=== PATIENT | male | born 1940 | race Caucasian/White ===

== ENCOUNTER 2019-06-21 14:47 | Outpatient (CLI) | payer MEDICARE, SELFPAY ==
--- NOTE | 2019-06-21 14:58 | XR_ITS ---
WS: [id number] PROCEDURE: XR chest 2V* [id number] CLINICAL INFORMATION: Chronic cough COMPARISON: None. FINDINGS: Heart: Cardiomegaly. Lungs: Chronic emphysematous changes. No acute pulmonary infiltrates. Bones: Thoracic curve and kyphosis. Prior vertebroplasty changes in the lower thoracic spine. XR/XR chest 2V* [id number] IMPRESSION: No acute chest findings.
== END 2019-06-21 14:48 | disposition home or self-care (01) ==
LOC: RAD 14:51
PROVIDERS: PCP Nurse Practitioner Family; Visit Provider Internal Medicine Critical Care Medicine
DX: R05 Cough (principal)
CPT/HCPCS: 71046

== ENCOUNTER 2019-07-14 13:19 | Outpatient (CLI) | payer MEDICARE, SELFPAY ==
--- NOTE | 2019-07-14 13:27 | XR_ITS ---
WS: [id number] LEFT HAND: 3 VIEW(S) TECHNIQUE: PA, oblique and lateral. HISTORY: PAIN COMPARISON: None available. No acute fracture or dislocation. Multiple erosions involving the third metacarpal head. Additional moderate interphalangeal joint spac e narrowing with sclerosis and osteophytosis. Mild narrowing of the first carpometacarpal joint with arthritis. Prior avulsion fracture from the ulnar styloid. XR/XR hand LT min 3V* [id number] IMPRESSION: 1. Multiple erosions and partial subluxation at the third metacarpal phalangea l joint. Could be due to inflammatory arthropathy or prior trauma with healing or acute. 2. Additional moderate interphalangeal joint space narrowing from arthritis.
== END 2019-07-14 13:20 | disposition home or self-care (01) ==
LOC: RAD 13:22
PROVIDERS: PCP Nurse Practitioner Family; Visit Provider Nurse Practitioner Family
DX: M79.642 Pain in left hand (principal); M85.842 Other specified disorders of bone density and structure, left hand; M19.042 Primary osteoarthritis, left hand
CPT/HCPCS: 73130

== ENCOUNTER 2019-09-02 09:54 | Outpatient (CLI) | payer MEDICARE, SELFPAY ==
--- NOTE | 2019-09-02 09:43 | PFTS_ITS ---
Date of Study:09/02/19 Date of Dictation: MECHANICS: Forced vital capacity (FVC) is normal. Forced expiratory volume in one second (FEV1) is reduced. FEV1/FVC is reduced. FLOW VOLUME LOOP: Mild scooping. LUNG VOLUMES: Total lung capacity (TLC) is normal. Residual volume (RV) is normal. DIFFUSING CAPACITY FOR CARBON MONOXIDE: Normal. INTERPRETATION: The pulmonary function tests are consistent with moderate obstruction. There is no significant postbronchodilator response. Lung volumes are normal. Gas exchange (DLCO) is normal. MTDD
== END 2019-09-02 09:55 | disposition home or self-care (01) ==
LOC: RT 09:58
PROVIDERS: PCP Nurse Practitioner Family; Visit Provider Internal Medicine Critical Care Medicine
DX: R05 Cough (principal)
CPT/HCPCS: 94060; 94726; 94729; J7611

== ENCOUNTER 2019-09-22 11:25 | Inpatient (IN) | payer MEDICARE, SELFPAY ==
[2019-09-22] VITALS (75 sets, daily range): BP systolic 58–132; BP diastolic 37–81; PULSE 51–109; RESP 12–33; TEMP 36.6–36.7; O2SAT 90–100; BMI 26.3
--- NOTE | 2019-09-22 11:44 | XRR_ITS ---
PROCEDURE INFORMATION: Exam: XR Chest, 1 View Exam date and time: 09/22/2019 12:16 PM Age: 79 years old Clinical indication: Other: Altered mental status; Additional info: AMS TECHNIQUE: Imaging protocol: XR of the chest Views: 1 view. COMPARISON: CR XR chest 2V* [id number] 06/21/2019 3:01 PM FINDINGS: Lungs: Mild interstitial prominence without acute airspace disease. Pleural space: No pleural effusion. Heart/Mediastinum: Cardiac silhouette upper limits of normal in size. Vasculature: Ectasia of the thoracic aorta. Bones/joints: Osteopenia, degenerative change, and vertebral plasty. Other findings: Metallic necklace. XR/XR chest 1V portable [id number] IMPRESSION: No acute airspace or pleural disease.
--- NOTE | 2019-09-22 11:44 | CT_ITS ---
WS: [id number] CT HEAD NONCONTRAST HISTORY: AMS TECHNIQUE: Contiguous axial imaging performed through the brain in 2.5 mm imaging. Bone and soft tiss ue windows. Sagittal and coronal reformats reviewed. All CT scans at [facility] use at ast one of these dose optimization techniques: automated exposure control; mA and/or kV adjustment pe r patient size (includes targeted exams where dose is matched to clinical indication); or iterative r econstruction. DLP: 824.53 mGy.cm COMPARISON: None available. No acute intracranial hemorrhage, midline shift or mass effect. Mild atrophy and mild chronic microvascular ischemic disease. No prior infarcts. Ventricles: Normal size with no hydrocephalus. Moderate atherosclerotic plaque through the cavernous sinuses. Paranasal sinuses: Mild mucoperiosteal thickening in the ethmoid air cells. Mastoid air cells: Well pneumatized. Calvarium and scalp: Skull is intact with no soft tissue edema or swelling. CT/CT head wo con* [id number] IMPRESSION: 1. No acute intracranial hemorrhage or edema. 2. Mild atrophy and mild chronic microvascular ischemic disease.
--- NOTE | 2019-09-22 11:46 | ECG_ITS ---
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 Measurements Intervals [place] Rate: 66 P: 47 UT: 243 QRS: -50 QRSD: 105 T: -42 QT: 413 QTc: 434 Interpretive Statements SINUS RHYTHM WITH FIRST DEGREE AV BLOCK LEFT AXIS DEVIATION [QRS AXIS < -30] PATTERN CONSISTENT WITH PULMONARY DISEASE No previous ECG available for comparison Electronically Signed On 09-22-2019 16:26:30 CDT by Mohan Fields M.D. [email or web address]
[2019-09-22 11:48] LABS: Glucose Point of Care 147 mg/dL (70-110)
[2019-09-22] MEDS: ondansetron 2 mg/ML SDV 2 mL 4 MG IVP (11:54)
[2019-09-22] MEDS: levofloxacin-dextrose 5 % 750 MG/150 ML PREMIX 150 MG IV (11:55)
[2019-09-22] MEDS: sodium chloride 0.9% 1,000 ML 999 ML IV ×2 (11:56→13:04)
[2019-09-22] MEDS: sodium chloride 0.9% 1,000 ML 150 ML IV ×3 (11:57→22:22)
--- NOTE | 2019-09-22 12:00 | PC.NURSE ---
MARI YEBOAH HREAD BACK FROM DR. FABIAN FOR LEVOPHED TO BE ADM NOW AT A RATE OF 10MCG/MIN 37.5ML/HR AND THEN TO TITRAITE ACCORDING TO THE MAP INCREASE BELOW 65 AND DECREASE AND DECREASE FOR A MAP OF ABOVE 65.
[2019-09-22 12:04] LABS: Basophils % 0.4 %; Eosinophils # 0.2 10^3/uL (0.0-0.8); Eosinophils % 3.1 %; Hematocrit 34.9 % (42.0-52.0); Hemoglobin 10.9 g/dL (11.7-16.6); Lymphocytes # 0.9 10^3/uL (0.8-4.8); Lymphocytes % 13.4 %; Mean Corpuscular HGB Conc 31.2 g/dL (30.0-36.0); Mean Corpuscular Hemoglobin 31.7 pg (28.0-34.0); Mean Corpuscular Volume 101.5 fL (80-94); Mean Platelet Volume 10.1 fL (7.4-10.4); Monocytes # 0.5 10^3/uL (0.2-0.9); Monocytes % 7.1 %; Neutrophils # 5.32 10^3/uL (1.8-7.7); Neutrophils % 75.7 %; Nucleated Red Blood Cells % 0 %; Platelet Count 273 10^3/cmm (130-400); Red Blood Count 3.44 10^6/uL (4.1-5.3); Red Cell Distribution Width 14.3 % (12.1-15.1)
[2019-09-22 12:08] LABS: ABG PCO2 37.9 mmHg (35-45); ABG PH Result 7.33 (7.35-7.45); Alveolar-Arterial Oxygen Gradi 37.3 mmHg (5-10); Arterial Blood Gas Hematocrit 33.7 % (42-52); Base Excess ABG -5.4 mmol/L (-2.0-2.0); Blood Gas Allen Test Pos; Blood Gas Operator Identificat glc; Blood Gas Sample Site Radial, right; Blood Gas Sample Type Arterial; Carboxyhemoglobin 0.7 %THgb (0.4-20.1); HGB O2 Sat 96.6 % (95-100); Ionized Calcium Level - ABG 1.2 mmol/L (1.1-1.4); Methemoglobin 1.3 % (0.4-1.5); Oxygen Device NC; Oxygen Saturation ABG 98.5; Potassium Level - ABG 4.8 mmol/L (3.5-5.0)
[2019-09-22 12:10] LABS: INR 0.91 (0.8-1.2)
--- NOTE | 2019-09-22 12:10 | PC.NURSE ---
INFORMED DR. FABIAN OF BP OF 106/54 VO WITH READBACK TO DECREASE LEVOPHED TO 2MCG/MIN. WHILE AT BEDSIDE DECREASED LEVOPHED TO 2MCG/MIN
[2019-09-22 12:11] LABS: Partial Thromboplastin Time 28.7 SECONDS (23.9-36.7)
[2019-09-22 12:18] LABS: Ammonia 40 umol/L (16-60)
--- NOTE | 2019-09-22 12:18 | PC.NURSE ---
INFORMED DR. FABIAN THAT PT WAS ABLE TO URINATE VO WITH READBACK TO HOLD CATHETER
[2019-09-22 12:20] LABS: Lactic Sepsis W/Reflex 2.1 mmol/L (0.5-2.2)
--- NOTE | 2019-09-22 12:24 | W.ED.NEUROSD ---
HPI - Neuro Symptoms/Deficit General: Chief Complaint: Neuro Symptoms/Deficit Stated Complaint: weakness, can't walk today Time Seen by Provider: 09/22/19 11:44 Source: patient and family Mode of arrival: wheelchair Limitations: altered mental status History of Present Illness: HPI Narrative: Michael is a 79-year-old male who comes in with altered mental status and hypotension. All history is taken from his and the patient only answer some yes/no questions. He is very somnolent continues to fall off back to sleep. The patient's states that he was working outside in the sun the past 3 days and then after being stung yesterday he started acting funny later in the day. He does not have a history of anaphylactic reactions. He did not have hives, have any swelling or any difficulty breathing or swallowing. The patient's believes his blood pressure was low last night and then today he has been acting very abnormal along with being confused, weak and apparently almost passing out at times. Today he was trying to drive when she noticed he was very altered and got him to stop the car and then upon getting out he did have a syncopal spell. The patient was seen by a home health screening nurse and when he was found to have a significantly low blood pressure she recommended they come to the ER and his brought him here emergently. Here the patient will answer some yes/no questions but appears confused and he is significantly hypotensive when he arrives with a blood pressure in the 50s systolic. Review of Systems General: Reports: Other (ROS limited other than as noted in HPI secondary to patient's altered mental status.) [facility] ED PFSH: Medical History Arthritis COPD (chronic obstructive pulmonary disease) Depression with anxiety GERD (gastroesophageal reflux disease) Gout HTN (hypertension) Hyperlipidemia Restless leg syndrome Surgical History H/O hand surgery H/O knee surgery H/O shoulder surgery History of back surgery Family History Mother Osteoporosis Other CAD (coronary artery disease) Social History Smoking and tobacco status: former smoker Quit status (tobacco): has quit using tobacco Year quit tobacco: 1983 - 1PPD x 30 Years Alcohol intake: never Lives independently: Yes Household members: spouse Marital status: Current occupational status: employed 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 History of recent travel: No Current gender identity: Male Physical Exam Const: EXAM LIMITATIONS: altered mental status GENERAL APPEARANCE: lethargic ORIENTATION/CONSCIOUSNESS: Yes lethargic HENMT: COMMON NORMALS: normocephalic, atraumatic, external ears normal, EAC's normal and Normal external nose present HEAD & SCALP: normal to inspection, normocephalic and atraumatic FACE & SINUS: normal facial exam and face symmetric NOSE: Normal external nose present and Normal nares present EXTERNAL EAR: Yes external ears normal EXTERNAL AUDITORY CANAL: EAC's normal MOUTH: Normal oral and palatal mucosa present, lip normal and tongue normal Eye: COMMON NORMALS: Equal, round and reactive pupils present and conjunctivae normal GENERAL EYE: appearance normal, both eyes and all related structures ALIGNMENT: Yes alignment normal PERIORBITAL: periorbital findings normal EYELID: eyelids normal CONJUNCTIVA: Yes conjunctivae normal SCLERA: sclerae normal PUPIL: Yes Equal, round and reactive pupils present Neck/C-Spine: COMMON NORMALS: full ROM, no lymphadenopathy, supple, no meningeal signs and no JVD GENERAL: Yes normal visual inspection and Yes trachea midline Chest: COMMONS NORMALS: normal inspection of the chest and normal palpation of entire chest wall Resp: COMMON NORMALS: normal respiratory effort, No retractions and No use of accessory muscles EFFORT & INSPECTION: Yes able to speak in complete sentences and Yes symmetric chest movement AUSCULTATION: no crackles, no rales, no rhonchi and no wheezes Cardio: COMMON NORMALS: no JVD, regular rate, regular rhythm, S1 normal heart sound present and S2 normal heart sound present RATE: regular rate RHYTHM: regular rhythm HEART SOUNDS: S1 normal heart sound present, S2 normal heart sound present, no click, no gallops, no murmurs, no rubs and abnormal split S2 GI: COMMON NORMALS: Soft to palpation and No hepatosplenomegaly present PALPATION: Yes Soft to palpation, No Tenderness to palpation present (GI), No Guarding due to palpation present (GI), No Rigid due to palpation, Yes No hepatosplenomegaly present, No Hernia present, No Palpable mass present and No Pulsatile mass present : COMMON NORMALS: Yes no CVA tenderness BLADDER/KIDNEY EXAM: Yes no CVA tenderness Back/Pelvis: COMMON NORMALS: no CVA tenderness, thoracic and lumbar spine normal to inspection, no thoracic nor lumbar tenderness and thoraco-lumbar ROM normal Extremity: COMMON NORMALS: normal to inspection, full ROM, capillary refill normal, no joint enlargement, no clubbing, cyanosis or edema and no calf tenderness Neuro: HAIM COMA SCALE: document GCS findings [place] coma scale eye opening: None Haim coma scale verbal response: Confused Haim coma scale motor response: Obey commands Haim coma scale total score: 11 COMMON NORMALS: moves all extremities, no focal motor deficits and no sensory deficits noted SENSORIUM/ORIENTATION: Yes lethargic MENINGEAL SIGNS: Yes no meningeal signs SPEECH: speech normal Skin: COMMON NORMALS: no rashes or lesions noted, turgor normal, no jaundice, no petechiae and no mottling GENERAL SKIN EXAM: no rashes or lesions noted and turgor normal Course Vital Signs: Vital signs: Vital Signs Temperature 98.1 F 09/22/19 11:34 Pulse Rate 51 L 09/22/19 16:30 Respiratory Rate 24 H 09/22/19 16:30 Blood Pressure 119/60 09/22/19 16:45 Pulse Oximetry 95 09/22/19 16:30 MDM - Neuro Symptoms/Deficit MDM Narrative: Medical decision making narrative: It is not clear at this time whether this is an anaphylactic reaction or heatstroke or heat exhaustion. The patient has a significantly elevated creatinine but is stable on levo fed and IV fluids. He is producing some urine. His potassium is not critical. I reviewed the case in full with Dr. Henderson and he is agreeable to admission. The patient has been empirically covered for sepsis but I think this is more likely heatstroke or a combination of heat exhaustion with a allergic reaction. The patient is much more clear at this time and is mentating and talking. He has no complaints at this time. Lab Data: Attestation: I reviewed the patient's lab results. Labs: Lab Results 09/22/19 09/22/19 09/22/19 Range/Units 11:40 11:40 11:40 WBC 7.0 (4.0-10.0) 10^3/ uL RBC 3.44 L (4.1-5.3) 10^6/u L Hgb 10.9 L (11.7-16.6) g/dL Hct 34.9 L (42.0-52.0) % MCV 101.5 H (80-94) fL MCH 31.7 (28.0-34.0) pg MCHC 31.2 (30.0-36.0) g/dL RDW 14.3 (12.1-15.1) % Plt Count 273 (130-400) 10^3/c mm MPV 10.1 (7.4-10.4) fL Neut % (Auto) 75.7 % Lymph % (Auto) 13.4 % [place] % (Auto) 7.1 % Eos % (Auto) 3.1 % Baso % (Auto) 0.4 % Neut # (Auto) 5.32 (1.8-7.7) 10^3/u L Lymph # (Auto) 0.9 (0.8-4.8) 10^3/u L [place] # (Auto) 0.5 (0.2-0.9) 10^3/u L Eos # (Auto) 0.2 (0.0-0.8) 10^3/u L Baso # (Auto) 0.0 (0.0-0.1) 10^3/u L Nucleated RBC % (a uto) 0 % Nucleated RBCs # 0.0 /100WBC PT 12.60 (10.5-13.3) SECO NDS INR 0.91 (0.8-1.2) APTT 28.7 (23.9-36.7) SECO NDS Specimen Type Sample Site ABG pH (7.35-7.45) ABG pCO2 (35-45) mmHg ABG pO2 (80.0-100.0) mmH g ABG HCO3 (22-26) mmol/L ABG O2 Saturation ABG Base Excess (-2.0-2.0) mmol/ L Ilir Test A-a O2 Gradient (5-10) mmHg Hematocrit (42-52) % Hgb O2 Saturation (95-100) % Carboxyhemoglobin (0.4-20.1) %THgb Methemoglobin (0.4-1.5) % Total Hemoglobin (14-18) g/dL Ionized Calcium (1.1-1.4) mmol/L O2 Delivery Device FiO2 % Medical Sales Representative ID Sodium 137 (136-145) mmol/L Potassium 5.0 (3.5-5.1) mmol/L Chloride 102 (98-107) mmol/L Carbon Dioxide 20 L (22-29) mmol/L Anion Gap 20.0 H (5-19) BUN 51 H (8-23) mg/dL Creatinine 3.9 H (0.7-1.2) mg/dL Glucose 122 H (65-115) mg/dL POC Glucose (70-110) mg/dL Calculated Osmolal ity 284 L (285-295) mOsm/k g Lactic Acid (0.5-2.2) mmol/L Calcium 9.7 (8.5-10.5) mg/dL Magnesium 2.4 H (1.7-2.3) mg/dL Total Bilirubin 0.4 (0.15-1.2) mg/dL AST 19 (0-40) U/L ALT 14 (0-41) U/L Alkaline Phosphata se 74 (40-130) IU/L Ammonia (16-60) umol/L Creatine Kinase 139 (39-308) U/L Troponin T Baselin e (0-15) ng/L Total Protein 6.6 (6.6-8.7) g/dL Albumin 4.5 (3.5-5.2) g/dL Globulin 2.1 (1.3-4.6) g/dL Lipase 21 (13-60) U/L TSH 2.36 (0.27-4.20) uIU/ mL Free T4 1.23 (0.82-1.77) ng/d L Urine Color (Yellow) Urine Appearance (CLEAR) Urine pH (5-7) Ur Specific Gravit y (1.005-1.030) Urine Protein (Negative) Urine Glucose (UA) (Normal) Urine Ketones (Negative) Urine Blood (Negative) Urine Nitrate (Negative) Urine Bilirubin (NEGATIVE) Urine Urobilinogen (Negative) mg/dL Ur Leukocyte Tomasa ase (Negative) Urine RBC (0-2) /hpf Urine WBC (0-5) /hpf Ur Squamous Epith Cells (0-5) Urine Bacteria (NONE) Hyaline Casts Urine Mucus Ethyl Alcohol < 10 (0-10) mg/dL Serum Ketones (Negative) 09/22/19 09/22/19 09/22/19 Range/Units 11:40 11:40 11:40 WBC (4.0-10.0) 10^3/ uL RBC (4.1-5.3) 10^6/u L Hgb (11.7-16.6) g/dL Hct (42.0-52.0) % MCV (80-94) fL MCH (28.0-34.0) pg MCHC (30.0-36.0) g/dL RDW (12.1-15.1) % Plt Count (130-400) 10^3/c mm MPV (7.4-10.4) fL Neut % (Auto) % Lymph % (Auto) % [place] % (Auto) % Eos % (Auto) % Baso % (Auto) % Neut # (Auto) (1.8-7.7) 10^3/u L Lymph # (Auto) (0.8-4.8) 10^3/u L [place] # (Auto) (0.2-0.9) 10^3/u L Eos # (Auto) (0.0-0.8) 10^3/u L Baso # (Auto) (0.0-0.1) 10^3/u L Nucleated RBC % (a uto) % Nucleated RBCs # /100WBC PT (10.5-13.3) SECO NDS INR (0.8-1.2) APTT (23.9-36.7) SECO NDS Specimen Type Sample Site ABG pH (7.35-7.45) ABG pCO2 (35-45) mmHg ABG pO2 (80.0-100.0) mmH g ABG HCO3 (22-26) mmol/L ABG O2 Saturation ABG Base Excess (-2.0-2.0) mmol/ L Ilir Test A-a O2 Gradient (5-10) mmHg Hematocrit (42-52) % Hgb O2 Saturation (95-100) % Carboxyhemoglobin (0.4-20.1) %THgb Methemoglobin (0.4-1.5) % Total Hemoglobin (14-18) g/dL Ionized Calcium (1.1-1.4) mmol/L O2 Delivery Device FiO2 % Medical Sales Representative ID Sodium (136-145) mmol/L Potassium (3.5-5.1) mmol/L Chloride (98-107) mmol/L Carbon Dioxide (22-29) mmol/L Anion Gap (5-19) BUN (8-23) mg/dL Creatinine (0.7-1.2) mg/dL Glucose (65-115) mg/dL POC Glucose (70-110) mg/dL Calculated Osmolal ity (285-295) mOsm/k g Lactic Acid 2.1 (0.5-2.2) mmol/L Calcium (8.5-10.5) mg/dL Magnesium (1.7-2.3) mg/dL Total Bilirubin (0.15-1.2) mg/dL AST (0-40) U/L ALT (0-41) U/L Alkaline Phosphata se (40-130) IU/L Ammonia (16-60) umol/L Creatine Kinase (39-308) U/L Troponin T Baselin e 52 H (0-15) ng/L Total Protein (6.6-8.7) g/dL Albumin (3.5-5.2) g/dL Globulin (1.3-4.6) g/dL Lipase (13-60) U/L TSH (0.27-4.20) uIU/ mL Free T4 (0.82-1.77) ng/d L Urine Color (Yellow) Urine Appearance (CLEAR) Urine pH (5-7) Ur Specific Gravit y (1.005-1.030) Urine Protein (Negative) Urine Glucose (UA) (Normal) Urine Ketones (Negative) Urine Blood (Negative) Urine Nitrate (Negative) Urine Bilirubin (NEGATIVE) Urine Urobilinogen (Negative) mg/dL Ur Leukocyte Tomasa ase (Negative) Urine RBC (0-2) /hpf Urine WBC (0-5) /hpf Ur Squamous Epith Cells (0-5) Urine Bacteria (NONE) Hyaline Casts Urine Mucus Ethyl Alcohol (0-10) mg/dL Serum Ketones Negative (Negative) 09/22/19 09/22/19 09/22/19 Range/Units 11:44 11:45 11:53 WBC (4.0-10.0) 10^3/ uL RBC (4.1-5.3) 10^6/u L Hgb (11.7-16.6) g/dL Hct (42.0-52.0) % MCV (80-94) fL MCH (28.0-34.0) pg MCHC (30.0-36.0) g/dL RDW (12.1-15.1) % Plt Count (130-400) 10^3/c mm MPV (7.4-10.4) fL Neut % (Auto) % Lymph % (Auto) % [place] % (Auto) % Eos % (Auto) % Baso % (Auto) % Neut # (Auto) (1.8-7.7) 10^3/u L Lymph # (Auto) (0.8-4.8) 10^3/u L [place] # (Auto) (0.2-0.9) 10^3/u L Eos # (Auto) (0.0-0.8) 10^3/u L Baso # (Auto) (0.0-0.1) 10^3/u L Nucleated RBC % (a uto) % Nucleated RBCs # /100WBC PT (10.5-13.3) SECO NDS INR (0.8-1.2) APTT (23.9-36.7) SECO NDS Specimen Type Arterial Sample Site Radial, right ABG pH 7.33 L (7.35-7.45) ABG pCO2 37.9 (35-45) mmHg ABG pO2 113.0 H (80.0-100.0) mmH g ABG HCO3 20.0 L (22-26) mmol/L ABG O2 Saturation 98.5 ABG Base Excess -5.4 L (-2.0-2.0) mmol/ L Ilir Test Pos A-a O2 Gradient 37.3 H (5-10) mmHg Hematocrit 33.7 L (42-52) % Hgb O2 Saturation 96.6 (95-100) % Carboxyhemoglobin 0.7 (0.4-20.1) %THgb Methemoglobin 1.3 (0.4-1.5) % Total Hemoglobin 11.0 L (14-18) g/dL Ionized Calcium 1.2 (1.1-1.4) mmol/L O2 Delivery Device Nc FiO2 28.0 % Medical Sales Representative ID glc Sodium 139.0 (136-145) mmol/L Potassium 4.8 (3.5-5.1) mmol/L Chloride (98-107) mmol/L Carbon Dioxide (22-29) mmol/L Anion Gap (5-19) BUN (8-23) mg/dL Creatinine (0.7-1.2) mg/dL Glucose 126.0 H (65-115) mg/dL POC Glucose 147 (70-110) mg/dL Calculated Osmolal ity (285-295) mOsm/k g Lactic Acid (0.5-2.2) mmol/L Calcium (8.5-10.5) mg/dL Magnesium (1.7-2.3) mg/dL Total Bilirubin (0.15-1.2) mg/dL AST (0-40) U/L ALT (0-41) U/L Alkaline Phosphata se (40-130) IU/L Ammonia 40 (16-60) umol/L Creatine Kinase (39-308) U/L Troponin T Baselin e (0-15) ng/L Total Protein (6.6-8.7) g/dL Albumin (3.5-5.2) g/dL Globulin (1.3-4.6) g/dL Lipase (13-60) U/L TSH (0.27-4.20) uIU/ mL Free T4 (0.82-1.77) ng/d L Urine Color (Yellow) Urine Appearance (CLEAR) Urine pH (5-7) Ur Specific Gravit y (1.005-1.030) Urine Protein (Negative) Urine Glucose (UA) (Normal) Urine Ketones (Negative) Urine Blood (Negative) Urine Nitrate (Negative) Urine Bilirubin (NEGATIVE) Urine Urobilinogen (Negative) mg/dL Ur Leukocyte Tomasa ase (Negative) Urine RBC (0-2) /hpf Urine WBC (0-5) /hpf Ur Squamous Epith Cells (0-5) Urine Bacteria (NONE) Hyaline Casts Urine Mucus Ethyl Alcohol (0-10) mg/dL Serum Ketones (Negative) 09/22/19 Range/Units 12:50 WBC (4.0-10.0) 10^3/ uL RBC (4.1-5.3) 10^6/u L Hgb (11.7-16.6) g/dL Hct (42.0-52.0) % MCV (80-94) fL MCH (28.0-34.0) pg MCHC (30.0-36.0) g/dL RDW (12.1-15.1) % Plt Count (130-400) 10^3/c mm MPV (7.4-10.4) fL Neut % (Auto) % Lymph % (Auto) % [place] % (Auto) % Eos % (Auto) % Baso % (Auto) % Neut # (Auto) (1.8-7.7) 10^3/u L Lymph # (Auto) (0.8-4.8) 10^3/u L [place] # (Auto) (0.2-0.9) 10^3/u L Eos # (Auto) (0.0-0.8) 10^3/u L Baso # (Auto) (0.0-0.1) 10^3/u L Nucleated RBC % (a uto) % Nucleated RBCs # /100WBC PT (10.5-13.3) SECO NDS INR (0.8-1.2) APTT (23.9-36.7) SECO NDS Specimen Type Sample Site ABG pH (7.35-7.45) ABG pCO2 (35-45) mmHg ABG pO2 (80.0-100.0) mmH g ABG HCO3 (22-26) mmol/L ABG O2 Saturation ABG Base Excess (-2.0-2.0) mmol/ L Ilir Test A-a O2 Gradient (5-10) mmHg Hematocrit (42-52) % Hgb O2 Saturation (95-100) % Carboxyhemoglobin (0.4-20.1) %THgb Methemoglobin (0.4-1.5) % Total Hemoglobin (14-18) g/dL Ionized Calcium (1.1-1.4) mmol/L O2 Delivery Device FiO2 % Medical Sales Representative ID Sodium (136-145) mmol/L Potassium (3.5-5.1) mmol/L Chloride (98-107) mmol/L Carbon Dioxide (22-29) mmol/L Anion Gap (5-19) BUN (8-23) mg/dL Creatinine (0.7-1.2) mg/dL Glucose (65-115) mg/dL POC Glucose (70-110) mg/dL Calculated Osmolal ity (285-295) mOsm/k g Lactic Acid (0.5-2.2) mmol/L Calcium (8.5-10.5) mg/dL Magnesium (1.7-2.3) mg/dL Total Bilirubin (0.15-1.2) mg/dL AST (0-40) U/L ALT (0-41) U/L Alkaline Phosphata se (40-130) IU/L Ammonia (16-60) umol/L Creatine Kinase (39-308) U/L Troponin T Baselin e (0-15) ng/L Total Protein (6.6-8.7) g/dL Albumin (3.5-5.2) g/dL Globulin (1.3-4.6) g/dL Lipase (13-60) U/L TSH (0.27-4.20) uIU/ mL Free T4 (0.82-1.77) ng/d L Urine Color Yellow (Yellow) Urine Appearance Clear (CLEAR) Urine pH 5 (5-7) Ur Specific Gravit y 1.025 (1.005-1.030) Urine Protein Neg (Negative) Urine Glucose (UA) Norm (Normal) Urine Ketones Negative (Negative) Urine Blood Neg (Negative) Urine Nitrate Negative (Negative) Urine Bilirubin 1+ H (NEGATIVE) Urine Urobilinogen Neg (Negative) mg/dL Ur Leukocyte Tomasa ase Negative (Negative) Urine RBC None (0-2) /hpf Urine WBC 0-4 H (0-5) /hpf Ur Squamous Epith Cells 0-4 H (0-5) Urine Bacteria 2+ H (NONE) Hyaline Casts 5-10 H Urine Mucus 3+ Ethyl Alcohol (0-10) mg/dL Serum Ketones (Negative) Imaging Data^: CXR: My impression: No acute cardiopulmonary findings. CT Head: Radiologist's impression: [address] [address] [address] Scan Report Signed Patient: Jim Trejo Unit #: [id number] : 1940 Age/Sex: 79 / M ADM Date: 09/22/19 Loc: ER Room/Bed: Attending Dr: Ordering Provider/Ordering MD: Gwendolyn Fisher DO Date of Service: 09/22/19 Procedure(s): CT head wo con* [id number] Accession Number(s): [id number] Report Number: [id number] WS: [id number] CT HEAD NONCONTRAST HISTORY: AMS TECHNIQUE: Contiguous axial imaging performed through the brain in 2.5 mm imaging. Bone and soft tissue windows. Sagittal and coronal reformats reviewed. All CT scans at [facility] use at least one of these dose optimization techniques: automated exposure control; mA and/or kV adjustment per patient size (includes targeted exams where dose is matched to clinical indication); or iterative reconstruction. DLP: 824.53 mGy.cm COMPARISON: None available. No acute intracranial hemorrhage, midline shift or mass effect. Mild atrophy and mild chronic microvascular ischemic disease. No prior infarcts. Ventricles: Normal size with no hydrocephalus. Moderate atherosclerotic plaque through the cavernous sinuses. Paranasal sinuses: Mild mucoperiosteal thickening in the ethmoid air cells. Mastoid air cells: Well pneumatized. Calvarium and scalp: Skull is intact with no soft tissue edema or swelling. CT/CT head wo con* [id number] IMPRESSION: 1. No acute intracranial hemorrhage or edema. 2. Mild atrophy and mild chronic microvascular ischemic disease. Dictated By: Emilee Monson DO Signed By: Emilee Monson DO Signed Date/Time: 09/22/19 1304 DD/ 1302 EKG Data^: EKG 1: Attestation: I personally reviewed and interpreted this EKG as follows: EKG interpretation date: 09/22/19 EKG interpretation time: 11:30 Interpretation: Normal sinus rhythm at 66 beats a minute, first-degree AV block, T waves inverted in 2, 3 and aVF as well as V5 and V6. No old for comparison. EKG 2: Attestation: I personally reviewed and interpreted this EKG as follows: EKG interpretation date: 09/22/19 EKG interpretation time: 13:54 Interpretation: Normal sinus rhythm at 62 beats a minute, first-degree AV block, T waves inverted 2, 3, aVF V5 and V6. Unchanged from previous. Discharge Plan Discharge Patient Disposition: Admitted As Inpatient Admit Provider: Stewart Henderson Clinical Impression: Acute hypotension Altered mental status Qualifiers: Altered mental status type: unspecified Qualified Code(s): R41.82 - Altered mental status, unspecified Acute renal failure Qualifiers: Acute renal failure type: unspecified Qualified Code(s): N17.9 - Acute kidney failure, unspecified Condition: Stable Referrals: Valenzuela,FLAVIO Babin [Primary Care Provider] - Discharge Date/Time: 09/22/19 15:41 Coding Level of Care Code ED [employer] for Chg Fwd Exam Comprehensive
[2019-09-22 12:25] LABS: Ketone (Acetest) Serum Negative (Negative); Troponin(5th) Baseline 52 ng/L (0-15)
[2019-09-22 12:33] LABS: Alanine Aminotransferase 14 U/L (0-41); Albumin Level 4.5 g/dL (3.5-5.2); Alkaline Phosphatase 74 IU/L (40-130); Aspartate Amino Transferase 19 U/L (0-40); Blood Urea Nitrogen 51 mg/dL (8-23); Calcium 9.7 mg/dL (8.5-10.5); Carbon Dioxide 20 mmol/L (22-29); Chloride 102 mmol/L (98-107); Creatine Phosphokinase 139 U/L (39-308); Free T4 Free Thyroxine 1.23 ng/dL (0.82-1.77); Globulin 2.1 g/dL (1.3-4.6); Glucose 122 mg/dL (65-115); Lipase 21 U/L (13-60); Magnesium 2.4 mg/dL (1.7-2.3); Osmolality Calculated 284 mOsm/kg (285-295); Sodium 137 mmol/L (136-145); Thyroid Stimulating Hormone 2.36 uIU/mL (0.27-4.20); Total Bilirubin 0.4 mg/dL (0.15-1.2); Total Protein 6.6 g/dL (6.6-8.7)
--- NOTE | 2019-09-22 12:33 | PC.NURSE ---
PT TO CT VIA NURSE AND PRESSER ALL AROUND IN STRETCHER PT IS IN NAD.
[2019-09-22 12:37] LABS: Alcohol Level < 10 mg/dL (0-10)
[2019-09-22] MEDS: sodium chloride 0.9% 1,000 ML 250 ML IV ×2 (13:05→17:13)
--- NOTE | 2019-09-22 13:18 | PC.NURSE ---
INCREASED NS AT 250ML/HR TO 999 ML/HR UNTIL COMPLETE INFUSION OF 1000ML OF NS BAG. PER DR. CAREN GUERRA WITH READBACK.
[2019-09-22 13:19] LABS: Bilirubin Urine 1+ (NEGATIVE); Blood Urine Neg (Negative); Glucose Urine UA Norm (Normal); Ketones Urine Negative (Negative); Leukocyte Esterase Urine Negative (Negative); Nitrate Urine Negative (Negative); Protein Urine Neg (Negative); Specific Gravity, Urine 1.025 (1.005-1.030); Urine Appearance Clear (CLEAR); Urine Color Yellow (Yellow); Urobilinogen Urine Neg (Negative); pH Urine 5 (5-7)
[2019-09-22 13:22] LABS: Bacteria Urine 2+; Mucus Urine 3+; Squamous Epithelial Cell Urine 0-4 (0-5); WBC Urine 0-4 /hpf (0-5)
[2019-09-22 13:23] LABS: Add Urine Culture? No
--- NOTE | 2019-09-22 13:46 | ECG_ITS ---
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 Measurements Intervals [place] Rate: 62 P: 63 [place]: 309 QRS: -46 QRSD: 104 T: -59 QT: 482 QTc: 491 Interpretive Statements SINUS RHYTHM WITH FIRST DEGREE AV BLOCK LEFT AXIS DEVIATION [QRS AXIS < -30] MODERATE T-WAVE ABNORMALITY, CONSIDER INFERIOR ISCHEMIA [-0.1+ mV T WAVE IN II/aVF] Compared to ECG 09/22/2019 11:50:35 T-wave abnormality now present Possible ischemia now present Electronically Signed On 09-22-2019 16:32:19 CDT by Mohan Fields M.D. [id number]
[2019-09-22] MEDS: acetaminophen 500 mg Tablet 1000 MG PO (14:29)
--- NOTE | 2019-09-22 17:46 | ECG_ITS ---
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 Measurements Intervals [place] Rate: 63 P: 24 [place]: 292 QRS: -46 QRSD: 108 T: -46 QT: 451 QTc: 462 Interpretive Statements SINUS RHYTHM WITH FIRST DEGREE AV BLOCK MARKED LEFT AXIS DEVIATION [QRS AXIS < -30] Compared to ECG 09/22/2019 13:54:34 T-wave abnormality no longer present Possible ischemia no longer present Electronically Signed On 09-23-2019 20:35:41 CDT by Toby Frost M.D. [id number]
[2019-09-22 18:18] LABS: Troponin 5 6HR 29.15 ng/L (0-15)
--- NOTE | 2019-09-22 19:11 | PM.HP ---
Providers/Chief Complaint Admitting Physician: Stewart eHnderson MD Primary Care Provider: Talya Valenzuela APN Chief Complaint: poss heat stroke History of Present Illness Jim Trejo is a 79 year old male with history of hypertension, non-oxygen dependent COPD, osteoarthritis came in today for chief complaint of altered mental status/confusion and dehydration. 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 Patient is stating that he has been dehydrated and exhausted. While he was working he was stung by hornets. He did not experience any anaphylactic reaction in the past to bee stings. His noticed that he was getting lethargic and confused hence decision was made to send him to the ED. patient denied chest pain, shortness of breath, myalgias, motor deficit, nausea, vomiting, stridor, choking sensation, lip swelling. Patient is endorsing syncopal event as well today. On arrival to the ED he was hypotensive his systolic blood pressure was in 60s reportedly, he was confused, he was given normal saline bolus, along with Levaquin, started on vasopressors and transferred to the ICU. Diagnostics in the ER revealed anemia hemoglobin 10.9, macrocytosis, JOSE BUN 51, creatinine 3.9, normal TSH, concentrated urine CT head negative At the time of my evaluation in the ICU patient was on levophed, systolic blood pressure ranging between 115-120, heart rate in 60s I reviewed his EKG which is showing T wave inversion in 2 3 aVF and lateral leads, troponin hour negative delta patient not complaining of any chest pain, Review of Systems Const: Reports: chills, fatigue and malaise; Denies: fever(s), body aches or change in appetite Eyes: Denies: change in vision ENMT: Denies: throat pain, odynophagia or swelling of lips/tongue Card: Denies: chest pain, palpitations, swelling of feet/ankles, dyspnea on exertion or orthopnea Resp: Denies: dyspnea GI: Denies: abdominal pain, nausea or vomiting : Denies: flank pain or difficulty urinating Musc: Denies: neck pain Skin/Breast: Denies: rash Neuro: Denies: headache(s) Psych: Denies: anxiety or depression Endo: Denies: polyuria Robert/Lymph: Denies: easy bruising All/Imm: Denies: urticaria Medications/Allergies Home Medications Medication Instructions Recorded Confirmed Last Taken Type albuterol sulfate 2.5 mg INHALATION Q4H PRN 06/18/19 09/22/19 Unknown History albuterol sulfate 90 mcg/actuation 2 puff INHALATION Q6H PRN 06/18/19 09/22/19 Unknown History aerosol inhaler allopurinol 300 mg tablet 300 mg PO DAILY 06/18/19 09/22/19 09/21/19 History atorvastatin 10 mg tablet 10 mg PO DAILY 06/18/19 09/22/19 09/21/19 History bupropion HCl 150 mg 24 hr tablet, 150 mg PO QAM 06/18/19 09/22/19 09/21/19 History extended release diclofenac potassium 50 mg tablet 50 mg PO QID tab 06/18/19 09/22/19 09/21/19 History fluticasone 250 mcg-salmeterol 50 1 inh INHALATION BID 06/18/19 09/22/19 09/21/19 History mcg/dose blistr powdr for inhalation gabapentin 600 mg tablet 600 mg PO BID 06/18/19 09/22/19 09/21/19 History lisinopril 20 mg tablet 20 mg PO DAILY 06/18/19 09/22/19 09/21/19 History pantoprazole 40 mg tablet,delayed 40 mg PO DAILY 06/18/19 09/22/19 09/21/19 History release ropinirole 3 mg tablet 3 mg PO DAILY PRN tab 06/18/19 09/22/19 Unknown History trazodone 100 mg tablet 50 mg PO DAILY tab 06/18/19 09/22/19 09/21/19 History umeclidinium 62.5 mcg-vilanterol 1 inh INHALATION DAILY 90 Days #60 06/18/19 09/22/19 09/21/19 Rx 25 mcg/actuation powdr for each inhalation venlafaxine 150 mg 150 mg PO DAILY 06/18/19 09/22/19 09/21/19 History capsule,extended release 24 hr zolpidem 10 mg tablet 10 mg PO DAILY tab 06/18/19 09/22/19 09/21/19 History naproxen 500 mg PO BID PRN 09/22/19 09/22/19 Unknown History tramadol 50 mg PO Q4H PRN 09/22/19 09/22/19 09/21/19 History Allergies Allergy/AdvReac Type Severity Reaction Status Date / Time Penicillins Allergy Severe ALGY-Rash Verified 06/18/19 09:31 Sulfa (Sulfonamide Allergy Severe ALGY-Rash Verified 06/18/19 09:31 Antibiotics) ivory soap Allergy ALGY-Rash Uncoded 09/22/19 11:48 PFSH Acute PFSH: Medical History Arthritis COPD (chronic obstructive pulmonary disease) Depression with anxiety GERD (gastroesophageal reflux disease) Gout HTN (hypertension) Hyperlipidemia Restless leg syndrome Surgical History H/O hand surgery H/O knee surgery H/O shoulder surgery History of back surgery Family History Mother Osteoporosis Other CAD (coronary artery disease) Social History Smoking and tobacco status: former smoker Quit status (tobacco): has quit using tobacco Year quit tobacco: 1983 - 1PPD x 30 Years Alcohol intake: never Lives independently: Yes Household members: spouse Marital status: Current occupational status: employed 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 History of recent travel: No Current gender identity: Male Vitals/I&O/Wt Last Vital Signs Temp 98.1 F 09/22/19 11:34 Pulse 51 L 09/22/19 16:30 Resp 24 H 09/22/19 16:30 BP 119/60 09/22/19 16:45 Pulse Ox 95 09/22/19 16:30 09/22/19 09/22/19 09/22/19 06:59 14:59 22:59 Intake Total 2010.833 / 2010.833 2470 / 4481.833 Output Total 250 / 250 650 / 900 Balance 1761.833 / 6394.131 5990 / 3581.833 Weight last 48 hrs Weight 73.936 kg Physical Exam Narrative: EXAM NARRATIVE: Head to toe examination Well-built male Does not look severely dehydrated or sunburnt Alert oriented x3 GCS 15 Neurologically nonfocal exam S1, S2 no tachycardia or heart failure EKG shows T wave inversion low to 3 aVF and lateral leads No active chest pain Lungs are clear to auscultation on bilateral auscultation Abdomen soft nontender nondistended No lack of proprioception Lower extremity does not show any ischemia gangrene ulcer Mild swelling around his right orbital bone, and left elbow from hornet sting No active stridor or respiratory stress No signs of anaphylaxis Urinary Catheter Management^: Ying: Cath Placed During This Visit: yes Urinary Catheter Date of Insertion: 09/22/19 Urinary Catheter Time of Insertion: 12:50 Data : 09/22/19 11:40 09/22/19 11:40 Micro: Microbiology 09/22/19 11:40 Blood Culture - Preliminary Blood SPECIMEN COLLECTED 09/22/19 11:53 Blood Culture - Preliminary Blood SPECIMEN COLLECTED A&P Assessment and plan (1) Altered mental status: Status: Acute Qualifiers: Altered mental status type: unspecified Qualified Code(s): R41.82 - Altered mental status, unspecified (2) Acute renal failure: Status: Acute Qualifiers: Acute renal failure type: unspecified Qualified Code(s): N17.9 - Acute kidney failure, unspecified (3) Acute hypotension: Status: Acute (4) Bee sting: Status: Acute (5) Macrocytic anemia: Status: Acute (6) Troponin level elevated: Status: Acute (7) Syncope: Status: Acute (8) Hypovolemic shock: Status: Acute Additional A&P Information Hypovolemic shock secondary to heat exhaustion and dehydration Responded very well to fluid restriction and use of vasopressors Patient is active for age, low risk for PE, no active chest pain, EKG shows T wave inversions with negative delta troponin, no severe electrolyte imbalance noted, Normal TSH No signs of anaphylaxis Titrate off levo, continue fluid Type II OR I believe troponin elevation is secondary to severe JOSE Patient is denying chest pain, however EKG showing T wave inversions in inferior lateral leads currently chest pain-free, I would obtain echo in the morning to rule out wall motion abnormality, I would hold off on adding therapeutic dose of anticoagulant at this point Patient denies previous history of CHF, OR Acute kidney injury secondary to severe dehydration Prerenal etiology Hold lisinopril and naproxen Anticipating improvement with fluid resuscitation Syncope secondary to hypovolemia Currently awake alert oriented x3 Responded well to fluid resuscitation Echo to be followed in the morning TSH is normal Macrocytic anemia: We will check B12 and folate level, patient does not drink alcohol on daily basis, no lack of proprioception Full code dvt Prophylaxis Heparin Cardiac diet Attestations Medical Necessity Statement*: Currently needing ICU for hypovolemic shock, currently on vasopressors I am anticipating his stay to cross more than 2 midnights, clinical stay will be decided on his clinical progress Time Spent in Patient Care: (>than 50% of time spent in counselling and/or direct pt care on unit). 60 minutes Coding Level of Care Code Acute Ed Special Education Teacher for Chg Fwd Diagnoses Altered mental status R41.82 Altered mental status type: unspecified Acute renal failure N17.9 Acute renal failure type: unspecified Acute hypotension I95.9 Bee sting T63.441A Macrocytic anemia D53.9 Troponin level elevated R79.89 Syncope R55 Hypovolemic shock R57.1
[2019-09-22] MEDS: heparin 5,000 unit/mL INJ 1 mL 5000 UNIT SUBCUT (20:21)
[2019-09-23] VITALS (33 sets, daily range): BP systolic 97–162; BP diastolic 50–89; PULSE 55–106; RESP 10–32; TEMP 36.3–37.1; O2SAT 82–99
[2019-09-23 01:00] LABS: Folate Level 9.8 ng/mL (4.5-32.2)
[2019-09-23 01:01] LABS: Vitamin B12 268 pg/mL (232-1245)
[2019-09-23] MEDS: heparin 5,000 unit/mL INJ 1 mL 5000 UNIT SUBCUT ×3 (04:40→20:12)
[2019-09-23] MEDS: sodium chloride 0.9% 1,000 ML 150 ML IV (04:40)
[2019-09-23 05:35] LABS: Basophils % 0.3 %; Eosinophils # 0.3 10^3/uL (0.0-0.8); Eosinophils % 4.6 %; Hematocrit 32.3 % (42.0-52.0); Hemoglobin 9.9 g/dL (11.7-16.6); Lymphocytes # 0.9 10^3/uL (0.8-4.8); Mean Corpuscular HGB Conc 30.7 g/dL (30.0-36.0); Mean Corpuscular Hemoglobin 32.2 pg (28.0-34.0); Mean Corpuscular Volume 105.2 fL (80-94); Mean Platelet Volume 10.3 fL (7.4-10.4); Monocytes # 0.6 10^3/uL (0.2-0.9); Monocytes % 8.9 %; Neutrophils # 5.21 10^3/uL (1.8-7.7); Neutrophils % 72.8 %; Nucleated Red Blood Cells % 0 %; Platelet Count 217 10^3/cmm (130-400); Red Blood Count 3.07 10^6/uL (4.1-5.3); Red Cell Distribution Width 14.3 % (12.1-15.1); White Blood Count 7.2 10^3/uL (4.0-10.0)
[2019-09-23 05:54] LABS: Blood Urea Nitrogen 31 mg/dL (8-23); Carbon Dioxide 20 mmol/L (22-29); Chloride 111 mmol/L (98-107); Glucose 82 mg/dL (65-115); Osmolality Calculated 284 mOsm/kg (285-295); Sodium 139 mmol/L (136-145)
[2019-09-23 05:57] LABS: Anion Gap 13.4 (5-19); Potassium 5.4 mmol/L (3.5-5.1)
--- NOTE | 2019-09-23 06:18 | PC.NURSE ---
SHIFT SUMMARY PT HAS REMAINED ALERT AND ORIENTATED. PT LEVO IS NO OFF, PRESSURES HOLDING. PT HAS NO COMPLAINTS. PT RIGHT IV REMAINS PATENT. PT HAS HAD ADEQUATE URINE OUTPUT AND GOOD PO INTAKE WELL.
--- NOTE | 2019-09-23 09:09 | P.PN_ITS ---
Subjective Subjective: Interval history: Patient reports feeling much better this morning. Denies being diabetic or having previous history of heart disease. Denies shortness of breath or chest pain. Denies abdominal pain or previous history of melena or hematochezia. His Levophed drip was weaned off and blood pressure is adequate this morning. He reports some chronic nonspecific cough. Echocardiogram without acute/significant findings. He does report chronic left shoulder pain for which she takes analgesics. He also reports history of GERD secondary to NSAIDs but currently asymptomatic. Vitals/I&O/Wt Last Vital Signs Temp 98.7 F 09/23/19 03:10 Pulse 62 09/23/19 04:30 Resp 11 L 09/23/19 04:30 BP 122/60 09/23/19 04:30 Pulse Ox 96 09/23/19 04:30 09/22/19 09/23/19 09/23/19 22:59 06:59 14:59 Intake Total 2807.2 / 4819.033 3001.375 / 7820.408 Output Total 650 / 900 2500 / 3400 Balance 2157.2 / 3919.033 501.375 / 4420.408 Weight last 48 hrs Weight 73.936 kg Physical Exam Const: COMMON NORMALS: no acute distress and patient oriented x3 Resp: COMMON NORMALS: normal respiratory effort and clear to auscultation bilaterally AUSCULTATION: clear to auscultation bilaterally Cardio: COMMON NORMALS: regular rate, regular rhythm and S2 normal heart sound present RATE: regular rate RHYTHM: regular rhythm HEART SOUNDS: S2 normal heart sound present OTHER: No lower extremity edema GI: COMMON NORMALS: Normal to inspection, nondistended, normoactive bowel sounds present, Soft to palpation and non-tender PALPATION: Yes Soft to palpation Neuro: COMMON NORMALS: patient oriented x3 and no focal motor deficits Urinary Catheter Management^: Ying: Cath Placed During This Visit: yes Reason for Continuing Indwelling Catheter: Accurate Measurement of Urinary Output in Critically Ill Patients Urinary Catheter Date of Insertion: 09/22/19 Urinary Catheter Time of Insertion: 12:50 Data : 09/23/19 04:52 09/23/19 04:52 Micro: Microbiology 09/22/19 12:50 Urine Culture - Preliminary Urine Catheterized 09/22/19 11:40 Blood Culture - Preliminary Blood SPECIMEN COLLECTED 09/22/19 11:53 Blood Culture - Preliminary Blood SPECIMEN COLLECTED A&P Assessment and plan (1) Altered mental status: Status: Acute Qualifiers: Altered mental status type: unspecified Qualified Code(s): R41.82 - Altered mental status, unspecified (2) Acute renal failure: Status: Acute Qualifiers: Acute renal failure type: unspecified Qualified Code(s): N17.9 - Acute kidney failure, unspecified (3) Acute hypotension: Status: Acute (4) Bee sting: Status: Acute (5) Macrocytic anemia: Status: Acute (6) Troponin level elevated: Status: Acute (7) Syncope: Status: Acute (8) Hypovolemic shock: Status: Acute Additional A&P Information Hypovolemic shock secondary to heat exhaustion and dehydration Responded very well to fluid restriction and use of vasopressors Patient is active for age, low risk for PE, no active chest pain, EKG shows T wave inversions with negative delta troponin, no severe electrolyte imbalance noted, Normal TSH No signs of anaphylaxis Titrate off levo, continue fluid Type II [place] I believe troponin elevation is secondary to severe JOSE and hypotension. Patient is denying chest pain, however EKG showing T wave inversions in inferior lateral leads currently chest pain-free, I would obtain echo in the morning to rule out wall motion abnormality, I would hold off on adding therapeutic dose of anticoagulant at this point Patient denies previous history of CHF, [place] Acute kidney injury secondary to severe dehydration Prerenal etiology Hold lisinopril and naproxen Anticipating improvement with fluid resuscitation Syncope secondary to hypovolemia Currently awake alert oriented x3 Responded well to fluid resuscitation Echo to be followed in the morning TSH is normal Macrocytic anemia: We will check B12 and folate level, patient does not drink alcohol on daily basis, no lack of proprioception COPD, present on admission. Not in exacerbation PLAN: Repeat EKG. Patient is physically very active and denies ever getting any chest pain or shortness of breath even with exertion. Will give patient 1 dose of Kayexalate and continue normal saline but decrease rate to 75 mL/h. Encouraged oral intake. Remove Ying catheter and monitor urinary output. Patient reports need to wake up several times at night to urinate. If kidney function is not improving consider imaging. At this point no antibiotic will be initiated. Restart home medications. Transfer patient to medical you. Full code dvt Prophylaxis Heparin Cardiac diet Attestations Medical Necessity Statement*: Patient with severe hypotension and dehydration as well as acute kidney injury requires close inpatient monitoring and treatment Time Spent in Patient Care: 16 - 35 minutes Coding Level of Care Code Acute Customer Account Specialist for g Fwd Diagnoses Altered mental status R41.82 Altered mental status type: unspecified Acute renal failure N17.9 Acute renal failure type: unspecified Acute hypotension I95.9 Bee sting T63.441A Macrocytic anemia D53.9 Troponin level elevated R79.89 Syncope R55 Hypovolemic shock R57.1
--- NOTE | 2019-09-23 09:13 | ECG_ITS ---
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 Measurements Intervals [place] Rate: 66 P: 70 [place]: 276 QRS: -49 QRSD: 99 T: -34 QT: 375 QTc: 394 Interpretive Statements SINUS RHYTHM WITH FIRST DEGREE AV BLOCK INFERIOR MYOCARDIAL INFARCTION [40+ ms Q WAVE AND/OR ST/T ABNORMALITY IN II/aVF], OF INDETERMINATE AGE Compared to ECG 09/22/2019 17:14:00 Myocardial infarct finding now present Left-axis deviation no longer present Electronically Signed On 09-23-2019 20:37:30 CDT by Toby Frost M.D. [id number]
[2019-09-23] MEDS: atorvastatin 40 mg Tablet 20 MG PO (11:23)
[2019-09-23] MEDS: sodium chloride 0.9% 1,000 ML 75 ML IV (11:23)
[2019-09-23] MEDS: sodium polystyrene sulfonate 15 gm/60 mL Btl PO (12:00)
--- NOTE | 2019-09-23 12:09 | PC.NURSE ---
Med surg called to give report. nurse busy, will call back.
--- NOTE | 2019-09-23 12:35 | PC.NURSE ---
Report called to Kylie DE LA GARZA
[2019-09-23] MEDS: gabapentin 300 mg Capsule PO (17:52)
--- NOTE | 2019-09-23 18:20 | PC.NURSE ---
SHIFT SUMMARY PATIENT HAS DONE WELL SINCE ARRIVING TO UNIT. VITALS STABLE. PATIENT HAS HAD 2 BM'S. GOOD URINE OUTPUT. NO COMPLAINTS AT THIS TIME.
--- NOTE | 2019-09-23 20:09 | USCV_ITS ---
Jim Trejo Age: 79 Gender: M : 1940 Exam Date: 09/23/2019 05:40 Ordering Phys: Akilah Salas MD Technologist: Tia Garza [place] [facility] [place]: Possible [place] stroke BP: 104 / 54 HR: 70 Rhythm: Sinus Technical Quality: Adequate MEASUREMENTS (Male / Female) Normal Values 2D ECHO LV Diastolic Diameter PLAX 3.9 cm 4.2 - 5.9 / 3.9 - 5.3 cm LV Systolic Diameter PLAX 3.6 cm IVS Diastolic Thickness 1.5 cm 0.6 - 1.0 / 0.6 - 0.9 cm IVS Systolic Thickness 1.3 cm LVPW Diastolic Thickness 1.6 cm 0.6 - 1.0 / 0.6 - 0.9 cm LVPW Systolic Thickness 1.5 cm LVOT Diameter 2.0 cm LV Ejection Fraction 2D Teich 18.6 % LV Ejection Fraction MOD 2C 63.1 % LV Ejection Fraction 2C AL 64.9 % LA Diameter 3.4 cm LA Width 0.0 cm LA Height 3.6 cm RA Width 2.4 cm RA Height 3.9 cm Aorta at Sinotubular Diameter 3.0 cm M-MODE LV Diastolic Diameter MM 6.0 cm 4.2 - 5.9 / 3.9 - 5.3 cm LV Systolic Diameter MM 3.8 cm LV Ejection Fraction MM Teich 64.9 % IVS Diastolic Thickness MM 1.3 cm 0.6 - 1.0 / 0.6 - 0.9 cm IVS Systolic Thickness MM 2.1 cm LVPW Diastolic Thickness MM 1.2 cm 0.6 - 1.0 / 0.6 - 0.9 cm LVPW Systolic Thickness MM 2.1 cm RV Diastolic Diameter MM 1.1 cm Aortic Annulus Diameter 3.6 cm LA Ao Ratio MM 0.9 MV E Point Septal Separation 0.6 cm DOPPLER AV Peak Velocity 234.0 cm/s LVOT Peak Velocity 104.0 cm/s AV Area Cont Eq vti 1.5 cm squared AV Area Cont Eq pk 1.4 cm squared MV Area PHT 3.3 cm squared Mitral E to A Ratio 1.1 MV E' Velocity 10.0 cm/s Mitral E to MV E' Ratio 10.4 Mitral E to LV E' Lateral Ratio 11.1 Mitral E to LV E' Septal Ratio 9.9 TR Peak Velocity 243.0 cm/s TR Peak Gradient 23.5 mmHg TR Mean Velocity 228.6 cm/s TR Mean Gradient 21.9 mmHg TR Velocity Time Integral 80.0 cm TV Peak E Velocity 106.0 cm/s Right Atrial Pressure 3.0 mmHg Pulmonary Artery Systolic Pressu 26.6 mmHg PV Peak Velocity 52.0 cm/s RV Acceleration Time 0.2 s RV Ejection Time 0.4 s RV AcT/ET 0.5 FINDINGS Left Ventricle Normal left ventricular size, systolic function and wall thickness, with no regional wall motion abnormalities. Grade I/IV diastolic dysfunction (abnormal relaxation filling pattern), normal to mildly elevated filling pressures. Left ventricular ejection fraction is estimated at 65 %. Right Ventricle Normal right ventricular size and systolic function. Normal right ventricular systolic pressure. Right Atrium The right atrium is normal in size. Left Atrium The left atrium is normal in size. Mitral Valve Structurally normal mitral valve. Mild mitral valve regurgitation. Aortic Valve Structurally normal trileaflet aortic valve. Moderate aortic valve calcification. Mild aortic valve stenosis, mean gradient 10.3 mmHg, STELLA 1.5 cm squared. Mild aortic valve regurgitation. Tricuspid Valve Structurally normal tricuspid valve. Mild tricuspid valve regurgitation. Pulmonic Valve Pulmonic valve not well visualized. Pericardium Normal pericardium without effusion. Aorta Normal ascending aorta dimension. CONCLUSIONS Normal left ventricular size, systolic function and wall thickness, with no regional wall motion abnormalities. Grade I/IV diastolic dysfunction (abnormal relaxation filling pattern), normal to mildly elevated filling pressures. Left ventricular ejection fraction is estimated at 65 %. Structurally normal mitral valve. Mild mitral valve regurgitation. Structurally normal trileaflet aortic valve. Moderate aortic valve calcification. Mild aortic valve stenosis, mean gradient 10.3 mmHg, STELLA 1.5 cm squared. Mild aortic valve regurgitation. There are no prior echocardiogram studies to compare. Dr. Mohan Fields MD (Electronically Signed) Final Date: 23 September 2019 07:35 S
[2019-09-24] VITALS: BP 161/70; PULSE 69; RESP 18; TEMP 36.8; O2SAT 94
[2019-09-24] MEDS: sodium chloride 0.9% 1,000 ML 75 ML IV (02:51)
[2019-09-24 03:57] VITALS: BP 116/68; PULSE 54; RESP 20; TEMP 36.9; O2SAT 94
[2019-09-24] MEDS: heparin 5,000 unit/mL INJ 1 mL 5000 UNIT SUBCUT ×2 (05:30→11:30)
[2019-09-24] MEDS: buPROPion XL (24 HR) 150 mg Tablet PO (05:30)
[2019-09-24 07:22] VITALS: BP 176/79; PULSE 53; RESP 17; TEMP 36.8; O2SAT 94
[2019-09-24 08:15] VITALS: PULSE 58; RESP 16; O2SAT 98
[2019-09-24] MEDS: atorvastatin 40 mg Tablet 20 MG PO (08:16)
[2019-09-24] MEDS: pantoprazole DR 40 mg Tablet PO (08:16)
[2019-09-24] MEDS: gabapentin 300 mg Capsule PO (08:16)
[2019-09-24] MEDS: venlafaxine ER (24HR) 150 mg Capsule PO (08:16)
[2019-09-24] MEDS: trazodone 100 mg Tablet 50 MG PO (08:16)
[2019-09-24 09:58] LABS: Basophils % 0.7 %; Eosinophils # 0.2 10^3/uL (0.0-0.8); Eosinophils % 4.2 %; Hematocrit 33.6 % (42.0-52.0); Hemoglobin 10.7 g/dL (11.7-16.6); Lymphocytes # 1.3 10^3/uL (0.8-4.8); Lymphocytes % 23.8 %; Mean Corpuscular HGB Conc 31.8 g/dL (30.0-36.0); Mean Corpuscular Hemoglobin 32.2 pg (28.0-34.0); Mean Corpuscular Volume 101.2 fL (80-94); Mean Platelet Volume 9.4 fL (7.4-10.4); Monocytes # 0.5 10^3/uL (0.2-0.9); Monocytes % 8.7 %; Neutrophils # 3.38 10^3/uL (1.8-7.7); Neutrophils % 62.2 %; Nucleated Red Blood Cells % 0 %; Platelet Count 224 10^3/cmm (130-400); Red Blood Count 3.32 10^6/uL (4.1-5.3); Red Cell Distribution Width 13.8 % (12.1-15.1); White Blood Count 5.4 10^3/uL (4.0-10.0)
[2019-09-24 10:19] LABS: Alanine Aminotransferase 13 U/L (0-41); Albumin Level 4.3 g/dL (3.5-5.2); Alkaline Phosphatase 77 IU/L (40-130); Anion Gap 11.9 (5-19); Aspartate Amino Transferase 19 U/L (0-40); Blood Urea Nitrogen 19 mg/dL (8-23); Calcium 9.9 mg/dL (8.5-10.5); Carbon Dioxide 24 mmol/L (22-29); Chloride 108 mmol/L (98-107); Globulin 2.1 g/dL (1.3-4.6); Glucose 117 mg/dL (65-115); Magnesium 1.8 mg/dL (1.7-2.3); Osmolality Calculated 286 mOsm/kg (285-295); Potassium 4.9 mmol/L (3.5-5.1); Sodium 139 mmol/L (136-145); Total Bilirubin 0.3 mg/dL (0.15-1.2); Total Protein 6.4 g/dL (6.6-8.7)
--- NOTE | 2019-09-24 10:33 | PC.CHAP ---
Pastoral Care Encounter/Spiritual Assessment Type of Contact [] Declined flask fitter visit [] Patient/Family/Request visit [] Outpatient visit [] Follow-up visit [] Physician referral [] Code/Alert [x] Routine visit [] Staff referral [] Actively dying [] Patient sleeping [] Family support [] [] Out of room [] Palliative care [] [] Receiving care in room [] Pre-surgical visit [] Trauma [] Long length of stay [] ICU visit [] Other: Relational/Emotional Strength [x] Patient feels connected with others/family/visitors/staff [] Distress [] Loneliness/isolation [] Abandonment Spirituality of Patient [x] Person of Katja [x] Attends Nondenominational of their Katja [x] Believes in Prayer [] Reads Bible or Quaker materials [] There are Spiritual issues to be addressed 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 Interventions [x] Prayer [x] Active listening x[] Non-anxious presence [x] Spiritual/emotional support [] Crisis/trauma care [] Spiritual counseling [] Bereavement support [] Provided bereavement packet [] Provided Bible/devotional materials [] Provided toy/stuffed animal, coloring book to patient or family member [] Provided Communion [] Anointing/[place] [] Salvation [x] Completed spiritual assessment [] Other: Impact on Illness or Injury [] Angry [] Fearful [] Anxious [] Often cries [] Exhaustion [] Unable to work [] Unable to attend samaritan [] Unable to walk/stand [] Unable to read [] Unable to drive [] Unable to eat/drink [] Unable to sleep [] Unable to be with family [] Patient intubated [x] Other: Summary Patient professed katja in the person and work of Lord Starr. Time spent with patient 10 minutes
[2019-09-24 11:30] VITALS: BP 164/92; PULSE 60; RESP 17; TEMP 36; O2SAT 98
--- NOTE | 2019-09-24 11:37 | P.DS_ITS ---
Discharge Providers Date of Admission: 09/22/19 13:44 Date of Discharge: September 24, 2019 Attending Provider at Admission: Stewart Henderson MD Attending Provider at Discharge: Stewart Henderson MD Primary Care Provider: Talya Valenzuela APN Diagnoses at Discharge Discharge Diagnosis (1) Altered mental status: Status: Acute Qualifiers: Altered mental status type: unspecified Qualified Code(s): R41.82 - Altered mental status, unspecified (2) Acute renal failure: Status: Acute Qualifiers: Acute renal failure type: unspecified Qualified Code(s): N17.9 - Acute kidney failure, unspecified (3) Acute hypotension: Status: Acute Problem details: Resolved. (4) Bee sting: Status: Acute (5) Macrocytic anemia: Status: Acute (6) Troponin level elevated: Status: Acute Problem details: Secondary to type II RI. (7) Syncope: Status: Acute (8) Hypovolemic shock: Status: Acute Reason for Visit Reason for Visit: [facility] Hospital Course Discharge Summary: Patient presents with syncopal episode after working under direct sun and being stung by bee several times. He was in hypovolemic shock requiring aggressive IV hydration and pressor support. He had evidence of non-ST elevation RI which felt to be of type II secondary to severe hypotension. Patient gradually improved with his treatment and this morning reports feeling much better and wants to go home. He denies shortness of breath or chest pain. He denies any previous history of chest pain even with exertion. He denies abdominal pain or problems with bowel movement. Denies any difficulty with urination. We have discussed his EKG changes and recommendation to see cardiology on outpatient basis and he agreed. He was noted to have inferior lead Q waves which could potentially indicate previous RI although patient is completely asymptomatic and tolerates heavy physical activity well. I will request lab work in several days prior to primary care physician follow-up. Patient was told to make sure he is well hydrating himself when working outside to avoid similar situation. His appetite and oral intake are very good. He ambulates without difficulty. Physical Exam Const: COMMON NORMALS: no acute distress and patient oriented x3 Resp: COMMON NORMALS: normal respiratory effort and clear to auscultation bilaterally AUSCULTATION: clear to auscultation bilaterally Cardio: COMMON NORMALS: regular rate, regular rhythm and S2 normal heart sound present RATE: regular rate RHYTHM: regular rhythm HEART SOUNDS: S2 normal heart sound present OTHER: No lower extremity edema GI: COMMON NORMALS: Normal to inspection, nondistended, normoactive bowel sounds present, Soft to palpation and non-tender PALPATION: Yes Soft to palpation Neuro: COMMON NORMALS: patient oriented x3 and no focal motor deficits Urinary Catheter Management^: Ying: Cath Placed During This Visit: yes, but has since been removed by the nurse Reason for Continuing Indwelling Catheter: Decision to DC Catheter Urinary Catheter Date of Insertion: 09/22/19 Urinary Catheter Time of Insertion: 12:50 Date Urinary Catheter Removed: 09/23/19 Time Urinary Catheter Discontinued: 10:00 Discharge Data Data Completed and Pending: Completed Studies During Hospitalization Category Date Time Status CT head wo con* 7 0450 Stat Cat Scan 09/22/19 11:44 Completed XR chest 1V anusha ble 29569 Stat Exams 09/22/19 11:44 Completed CV echo complete* 10200 Routine Ultrasound 09/23/19 20:09 Completed Pending at discharge Category Date Time Status Blood Culture Sta t Lab 09/22/19 11:40 Results Complete Blood Co unt w/Auto AM LABS Lab 09/25/19 04:00 Ordered Complete Blood Co unt w/Auto AM LABS Lab 09/26/19 04:00 Ordered Complete Blood Co unt w/Auto AM LABS Lab 09/27/19 04:00 Ordered Comprehensive Met abolic Panel AM LA BS Lab 09/25/19 04:00 Ordered Comprehensive Met abolic Panel AM LA BS Lab 09/26/19 04:00 Ordered Comprehensive Met abolic Panel AM LA BS Lab 09/27/19 04:00 Ordered Magnesium AM LABS Lab 09/25/19 04:00 Ordered Magnesium AM LABS Lab 09/26/19 04:00 Ordered Magnesium AM LABS Lab 09/27/19 04:00 Ordered Labs from last 24 hours 09/24/19 09/24/19 09:48 09:48 WBC 5.4 RBC 3.32 L Hgb 10.7 L Hct 33.6 L MCV 101.2 H MCH 32.2 MCHC 31.8 RDW 13.8 Plt Count 224 MPV 9.4 Neut % (Auto) 62.2 Lymph % (Auto) 23.8 [place] % (Auto) 8.7 Eos % (Auto) 4.2 Baso % (Auto) 0.7 Neut # (Auto) 3.38 Lymph # (Auto) 1.3 [place] # (Auto) 0.5 Eos # (Auto) 0.2 Baso # (Auto) 0.0 Nucleated RBC % (a uto) 0 Nucleated RBCs # 0.0 Sodium 139 Potassium 4.9 Chloride 108 H Carbon Dioxide 24 Anion Gap 11.9 BUN 19 Creatinine 1.3 H GFR Calculation Not Reportable Glucose 117 H Calculated Osmolal ity 286 Calcium 9.9 Magnesium 1.8 Total Bilirubin 0.3 AST 19 ALT 13 Alkaline Phosphata se 77 Total Protein 6.4 L Albumin 4.3 Globulin 2.1 Vitals: Last Vital Signs Temp 96.8 F L 09/24/19 11:30 Pulse 60 09/24/19 11:30 Resp 17 09/24/19 11:30 BP 164/92 09/24/19 11:30 Pulse Ox 98 09/24/19 11:30 Discharge Plan Discharge Patient Disposition: Home Condition: Stable Prescriptions: New aspirin [Adult Aspirin Regimen] 81 mg tablet,delayed release (DR/EC) 81 mg PO DAILY Qty: 30 RF: 0 Continued fluticasone propion-salmeterol [Advair Diskus] 250-50 mcg/dose blister with device 1 inh INHALATION BID RF: 0 albuterol sulfate [ProAir HFA] 90 mcg/actuation HFA aerosol inhaler 2 puff INHALATION Q6H PRN (Reason: Shortness Of Breath) RF: 0 zolpidem [Ambien] 10 mg tablet 10 mg PO DAILY RF: 0 trazodone 100 mg tablet 50 mg PO DAILY RF: 0 allopurinol 300 mg tablet 300 mg PO DAILY RF: 0 ropinirole 3 mg tablet 3 mg PO DAILY PRN (Reason: RESTLESS LEGS) RF: 0 gabapentin 600 mg tablet 600 mg PO BID RF: 0 venlafaxine 150 mg capsule,extended release 24hr 150 mg PO DAILY RF: 0 bupropion HCl 150 mg tablet extended release 24 hr 150 mg PO QAM RF: 0 atorvastatin 10 mg tablet 10 mg PO DAILY RF: 0 pantoprazole 40 mg tablet,delayed release (DR/EC) 40 mg PO DAILY RF: 0 lisinopril 20 mg tablet 20 mg PO DAILY RF: 0 albuterol sulfate 2.5 mg /3 mL (0.083 %) solution for nebulization 2.5 mg INHALATION Q4H PRN (Reason: Shortness Of Breath) RF: 0 Anoro Ellipta 62.5-25 mcg/actuation blister with device 1 inh INHALATION DAILY 90 Days Qty: 60 RF: 3 tramadol 50 mg Tablet 50 mg PO Q4H PRN (Reason: Pain) RF: 0 naproxen 500 mg Tablet 500 mg PO BID PRN (Reason: Pain) RF: 0 Discontinued diclofenac potassium 50 mg tablet 50 mg PO QID RF: 0 Discharge Orders: Discharge Order (Routine); Ordered 09/24/19 Ordered By: Stewart Henderson Other Ambulatory Orders: Complete Blood Count w/Auto (Routine) Timeframe: 20190928 Location: Determined by Patient Ordered By: Stewart Henderson Comprehensive Metabolic Panel (Routine) Timeframe: 20190928 Facility: [facility] - Location: Lab - Main Lab Ordered By: Stewart Henderson Referrals: Talya Valenzuela APN [Primary Care Provider] - Discharge Diet: Regular Discharge Activity: Increase activity as tolerated Activity Restrictions/Additional Instructions: Please call your doctor or present to emergency department if your condition worsens or you develop chest pain, shortness of breath, diarrhea, lightheadedness, fatigue or see blood in your stool or black stool. Please note that we have requested lab work next Saturday prior to primary care physician follow-up to make sure your numbers continue to improve. 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
[2019-09-24 15:07] VITALS: BP 164/92; PULSE 60; RESP 17; TEMP 36; O2SAT 98
--- NOTE | 2019-09-25 16:16 | PC.RESP ---
PULMONARY REHAB INFORMATION SENT TO PATIENT.
== END 2019-09-24 15:08 | disposition home or self-care (01) | DRG 922 ==
LOC: ER 14:24 → ICU 14:35 → MEDSURG 09-23 12:58
PROVIDERS: Emergency Medicine; Internal Medicine; Admitting Provider Internal Medicine; PCP Nurse Practitioner Family; Visit Provider Internal Medicine
DX: T67.5XXA Heat exhaustion, unspecified, initial encounter (principal); I21.A1 Myocardial infarction type 2; R57.1 Hypovolemic shock; N17.9 Acute kidney failure, unspecified; Y93.89 Activity, other specified; Y92.89 Other specified places as the place of occurrence of the external cause; D53.9 Nutritional anemia, unspecified; I95.9 Hypotension, unspecified; W57.XXXA Bitten or stung by nonvenomous insect and other nonvenomous arthropods, initial encounter; I10 Essential (primary) hypertension; J44.9 Chronic obstructive pulmonary disease, unspecified; M19.90 Unspecified osteoarthritis, unspecified site; E86.0 Dehydration; K21.9 Gastro-esophageal reflux disease without esophagitis; E78.5 Hyperlipidemia, unspecified; G25.81 Restless legs syndrome; F41.8 Other specified anxiety disorders; Z87.891 Personal history of nicotine dependence
CPT/HCPCS: 12345; 36415; 36416; 51702; 70450; 71045; 80048; 80051; 80053; 80307; 81001; 82009; 82140; 82550; 82607; 82746; 82810; 82962; 83605; 83690; 83735; 83986; 84439; 84443; 84484; 85025; 85610; 85730; 87040; 87086; 93005; 93306; 94640; 96372; 96375; 99284; J1644; J1956; J2405; J7030

== ENCOUNTER 2019-09-28 12:30 | Outpatient (CLI) | payer MEDICARE, SELFPAY ==
[2019-09-28 13:08] LABS: Basophils % 0.5 %; Eosinophils # 0.4 10^3/uL (0.0-0.8); Eosinophils % 6.5 %; Hematocrit 36.3 % (42.0-52.0); Hemoglobin 11.4 g/dL (11.7-16.6); Lymphocytes # 1.7 10^3/uL (0.8-4.8); Lymphocytes % 29.7 %; Mean Corpuscular HGB Conc 31.4 g/dL (30.0-36.0); Mean Corpuscular Hemoglobin 31.7 pg (28.0-34.0); Mean Corpuscular Volume 100.8 fL (80-94); Mean Platelet Volume 9.7 fL (7.4-10.4); Monocytes # 0.7 10^3/uL (0.2-0.9); Monocytes % 11.5 %; Neutrophils # 2.99 10^3/uL (1.8-7.7); Neutrophils % 51.1 %; Nucleated Red Blood Cells % 0 %; Platelet Count 279 10^3/cmm (130-400); Red Cell Distribution Width 13.9 % (12.1-15.1); White Blood Count 5.9 10^3/uL (4.0-10.0)
[2019-09-28 13:25] LABS: Alanine Aminotransferase 40 U/L (0-41); Albumin Level 4.3 g/dL (3.5-5.2); Alkaline Phosphatase 80 IU/L (40-130); Anion Gap 14.8 (5-19); Aspartate Amino Transferase 37 U/L (0-40); Blood Urea Nitrogen 30 mg/dL (8-23); Calcium 8.8 mg/dL (8.5-10.5); Carbon Dioxide 26 mmol/L (22-29); Chloride 104 mmol/L (98-107); Globulin 2.7 g/dL (1.3-4.6); Glucose 109 mg/dL (65-115); Osmolality Calculated 288 mOsm/kg (285-295); Potassium 4.8 mmol/L (3.5-5.1); Sodium 140 mmol/L (136-145); Total Bilirubin 0.2 mg/dL (0.15-1.2)
== END 2019-09-28 12:31 | disposition home or self-care (01) ==
LOC: LAB 12:34
PROVIDERS: PCP Nurse Practitioner Family; Visit Provider Internal Medicine
DX: R41.82 Altered mental status, unspecified (principal); N17.9 Acute kidney failure, unspecified; D53.9 Nutritional anemia, unspecified; W57.XXXA Bitten or stung by nonvenomous insect and other nonvenomous arthropods, initial encounter; I21.A1 Myocardial infarction type 2; R55 Syncope and collapse; R57.1 Hypovolemic shock
CPT/HCPCS: 36415; 80053; 85025

== ENCOUNTER 2019-11-04 08:19 | Outpatient (CLI) | payer MEDICARE, SELFPAY ==
[2019-11-04 09:05] VITALS: BMI 28.7
--- NOTE | 2019-11-04 09:06 | ECG_ITS ---
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 Interpretive Statements NAME OF STUDY: EXERCISE SESTAMIBI STRESS TEST INDICATION: Abnormal EKG, dyspnea Baseline blood pressure of 143/74 mm Hg, heart rate 80 beats per minute and oxygen saturation of 92%. EKG showed sinus rhythm with first-degree AV block. Left axis deviation. Possible old inferior infarct. The patient exercised for 7 minutes 28 seconds on a standard Florencio protocol. Patient attained a maximum heart rate of 122 beats per minute(85 % of the maximum predicted heart rate) with a blood pressure at the peak exercise of 207/82 mm Hg. The EKG at the peak exercise revealed sinus tachycardia. Interpretation limited by marked artifact. Patient did not have any chest pain or any significant arrhythmis with the exercise During the recovery phase, there were no new changes. Blood pressure at the end of the recovery phase was 151/84 mm Hg with a heart rate of 79 beats per minute. CONCLUSION: 1. EKG at peak treadmill exercise was uninterpretable due to significant artifact. No ST-T wave changes were noted in recovery. 2. No exercise-induced chest pain or cardiac arrhythmia. 3. Excellent exercise tolerance for age, attained a maximum of 10.2 METs. 4. Baseline hypertension with hypertensive response to exercise. 5. Perfusion scan will be documented separately. Electronically Signed On 11-10-2019 18:29:47 CDT by Linh Wade M.D. [id number]
--- NOTE | 2019-11-04 09:06 | NMCV_ITS ---
NM gabrielle perf SPECT r/s* [id number] Jim Trejo Age: 79 Gender: M : 1940 Exam Date: 11/04/2019 09:40 Ordering Phys: Linh Wade MD ([email or web address]) Technologist: JALEEL Brown Exam Location: [facility] Indications: Abnormal EKG STRESS TEST Please see separate stress test report in [facility] for full findings IMAGE PROTOCOL Rest/Stress 1 Exercise Day Radiopharmaceutical Dose (mCi) Administration Site Administered by Rest: Tc-99m 10.8 IV JALEEL Olguin Sestamibi Stress:Tc-99m 32.5 IV JALEEL Brown Sestamitima Rest: 04-Nov-2019 60 Discovery 630 Stress: 04-Nov-2019 45 Discovery 630 Radiopharmaceutical was injected at 85 % maximum heart rate. Images obtained in supine and prone position. SPECT RESULTS Technical Quality: Excellent Raw Data Analysis: Normal Image Corrections: No attenuation or motion correction applied Summed Stress Score: 8 Summed Rest Score: 8 Summed Difference Score: 2 PERFUSION FINDINGS Medium sized perfusion abnormality of mild to moderate severity of basal to apical inferior and basal to mid infero-lateral anguiano on rest with subtle improved tracer uptake in stress images. FUNCTIONAL RESULTS (calculated via Gated SPECT) Stress Image LV EF (%): 74 Stress EDV (mL):66 TID: 0.68 Stress ESV (mL):17 FUNCTIONAL FINDINGS: The left ventricle is normal in size. Transient Ischemia Dilatation of 0.68. There is normal left ventricular systolic function. The left ventricular ejection fraction is normal with a value of 74%. There is normal left ventricular wall thickening. Normal end diastolic and end systolic function. IMPRESSIONS 1. Medium sized perfusion abnormality of mild to moderate severity of basal to apical inferior and basal to mid infero-lateral anguiano on rest with subtle improved tracer uptake in stress images. 2. This may represent attenuation artifact or old myocardial infarction in right coronary/ circumflex artery territory with no harrison-infarct ischemia. 3. Overall left ventricular systolic function is normal without regional wall motion abnormalities. 4. The left ventricular ejection fraction is normal with a value of 74%. 5. No coronary ischemia based on this study. Linh Wade MD (Electronically Signed) Final Date: 08 November 2019 21:23 S
[2019-11-04 11:11] VITALS: BP 151/84; PULSE 79
== END 2019-11-04 08:20 | disposition home or self-care (01) ==
LOC: CDL 08:22
PROVIDERS: PCP Nurse Practitioner Family; Visit Provider Internal Medicine Cardiovascular Disease
DX: R94.31 Abnormal electrocardiogram [ECG] [EKG] (principal); R06.00 Dyspnea, unspecified
CPT/HCPCS: 78452; 93017; A9500

== ENCOUNTER 2019-12-02 15:07 | Outpatient (CLI) | payer MEDICARE, SELFPAY ==
[2019-12-02 15:55] LABS: Alanine Aminotransferase 16 U/L (0-41); Albumin Level 4.6 g/dL (3.5-5.2); Alkaline Phosphatase 82 IU/L (40-130); Anion Gap 11.4 (5-19); Aspartate Amino Transferase 16 U/L (0-40); Blood Urea Nitrogen 35 mg/dL (8-23); Calcium 9.8 mg/dL (8.5-10.5); Carbon Dioxide 27 mmol/L (22-29); Chloride 105 mmol/L (98-107); Globulin 2.2 g/dL (1.3-4.6); Glucose 92 mg/dL (65-115); Osmolality Calculated 294 mOsm/kg (285-295); Potassium 5.4 mmol/L (3.5-5.1); Sodium 138 mmol/L (136-145); Total Bilirubin 0.2 mg/dL (0.15-1.2); Total Protein 6.8 g/dL (6.6-8.7)
== END 2019-12-02 15:08 | disposition home or self-care (01) ==
LOC: LAB 15:13
PROVIDERS: PCP Nurse Practitioner Family; Visit Provider Nurse Practitioner Family
DX: E87.5 Hyperkalemia (principal)
CPT/HCPCS: 80053

== ENCOUNTER 2020-11-02 14:57 | Observation (INO) | payer MEDICARE, SELFPAY ==
[2020-11-02] VITALS (37 sets, daily range): BP systolic 77–134; BP diastolic 48–90; PULSE 61–97; RESP 14–34; TEMP 36.4–37.1; O2SAT 92–97; BMI 27.4
--- NOTE | 2020-11-02 15:31 | W.ED.ALLEREA ---
HPI - Allergic Reaction General: Chief complaint: Allergic Reaction Stated complaint: ALLERGIC REACTION, DIFF WALKING, SWELLING ALL OVER Time Seen by Provider: 11/02/20 15:30 History of Present Illness: HPI narrative: Mr Trejo is a 80-year-old gentleman with significant past medical history of CKD, hypertension, hyperlipidemia, COPD who presents the emergency department due to allergic reaction. His notes perhaps over the past week he has had intermittent incidences of confusion however has otherwise been at his baseline health. Today, he went out to take care of bees, which he has done multiple times before and denies history of allergy to or bites and was found sometime later with significant body rash and lightheadedness. Family gave him Benadryl and brought him to the emergency department. Triage vital signs include blood pressure of 80 systolic. The patient has diffuse rash which appears to be improving and is reported to improve, some hives present. Patient denies respiratory involvement. Mild nausea but no vomiting. No diarrhea. He does have facial swelling however denies difficulty swallowing or voice changes. Overall the intensity of symptoms at its worst was moderate to severe and is now improved to moderate. He is unsure of any other new environmental exposures. He did start Lasix approximately 3 weeks ago. No infectious symptoms. He cannot think of any other specific provoking, exacerbating, or alleviating factors. Review of Systems General: Reports: 10 or more systems reviewed and unremarkable except in HPI and below Narrative: CONSTITUTIONAL: denies fever, positive for fatigue, weakness EYES - denies pain, denies loss of vision EARS - denies ear issues. NOSE - denies congestion or rhinorrhea. THROAT - denies sore throat or difficulty swallowing. CARDIOVASCULAR - denies chest pain and palpitations RESPIRATORY - denies shortness of breath and cough GASTROINTESTINAL - denies abdominal pain, see HPI, no changes in bowel habits GENITOURINARY - denies dysuria or urinary frequency MUSCULOSKELETAL- denies deformity or pain SKIN -see HPI NEUROLOGIC - denies focal weakness or sensory changes HEMATOLOGIC/LYMPHATIC - denies easy bruising or lymphadenopathy. [facility] ED PFSH: Medical History Arthritis CKD (chronic kidney disease) COPD (chronic obstructive pulmonary disease) Depression with anxiety GERD (gastroesophageal reflux disease) Gout HTN (hypertension) Hyperlipidemia Restless leg syndrome Surgical History H/O hand surgery H/O knee surgery H/O shoulder surgery History of back surgery Family History Mother Osteoporosis Other CAD (coronary artery disease) Social History Smoking and tobacco status: former smoker Quit status (tobacco): has quit using tobacco Year quit tobacco: 1983 - 1PPD x 30 Years Alcohol intake: never Lives independently: Yes Household members: spouse Marital status: Current occupational status: employed 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 No acute distress. Eyes - PERRL, no conjunctival injection ENMT - Atraumatic external nose and ears. Moist mucous membranes NECK - supple. trachea midline CARDIOVASCULAR - regular rate and rhythm. Cool extremities. RESPIRATORY -clear to auscultation bilaterally. No retractions or accessory muscle use. ABDOMEN/GI - Nontender/Nondistended. No tenderness to percussion or evidence of peritonitis MSK - Extremities without obvious deformity or tenderness to palpation SKIN -diffuse urticarial rash, facial swelling. NEURO - alert and appropriately oriented. strength and sensation intact. Moves all extremities equally. PSYCH - Appropriate mood and affect Course ED course: - Patient was seen and evaluated by me at bedside - Patient placed on cardiac monitors, IV access obtained - Initial evaluation notable for ill appearance, patient is hypotensive and has diffuse urticarial rash and facial swelling. There is no definitive additional system involvement, no shortness of breath or wheezes, no acute GI symptoms however given hypotension anaphylaxis treatment ordered. -Fluids ordered. - Labs notable for hyperkalemia and JOSE. There were correlating peaked T waves and thus hyperkalemia treatment ordered. Leukocytosis is felt to be reactive in the absence of reported infectious symptoms. - Imaging notable for no acute lobar consolidation. The patient's did report episodes of confusion therefore head CT was ordered and negative for acute process. - Upon serial reexamination after treatment the patient was improved with improvement in blood pressure. - Based on patient history, evaluation, labs, and imaging as interpreted the most likely cause of the patient's condition is anaphylaxis and as a separate issue JOSE with hyperkalemia which may be related to starting Lasix a few weeks ago. - The results of ED evaluation were discussed with the patient including plan for admission due to requirement for level of care not available if discharged to prevent significant worsening/deterioration. -Hospitalist service contacted and agreed to admit the patient - Patient was admitted without further deterioration or significant events. Vital Signs: Vital signs: Vital Signs Temperature 97.8 F 11/04/20 04:00 Pulse Rate 79 11/04/20 08:26 Respiratory Rate 20 H 11/04/20 08:26 Blood Pressure 136/62 11/04/20 04:00 Pulse Oximetry 96 11/04/20 08:26 MDM - Allergic Reaction Medical Records: Attestation: I reviewed the patient's medical records. Lab Data: Attestation: I reviewed the patient's lab results. Labs: Lab Results 11/02/20 11/02/20 11/02/20 Range/Units 01:15 01:15 01:15 WBC (4.0-10.0) 10^3/ uL RBC (4.1-5.3) 10^6/u L Hgb (11.7-16.6) g/dL Hct (42.0-52.0) % MCV (80-94) fl MCH (28.0-34.0) pg MCHC (30.0-36.0) g/dL RDW (12.1-15.1) % Plt Count (130-400) 10^3/c mm MPV (7.4-10.4) fL Neut % (Auto) % Lymph % (Auto) % Griggs % (Auto) % Eos % (Auto) % Baso % (Auto) % Neut # (Auto) (1.8-7.7) 10^3/u L Lymph # (Auto) (0.8-4.8) 10^3/u L Griggs # (Auto) (0.2-0.9) 10^3/u L Eos # (Auto) (0.0-0.8) 10^3/u L Baso # (Auto) (0.0-0.1) 10^3/u L Nucleated RBC % (a uto) % Nucleated RBCs # /100WBC Sodium (136-145) mmol/L Potassium (3.5-5.1) mmol/L Chloride (98-107) mmol/L Carbon Dioxide (22-29) mmol/L Anion Gap (5-19) BUN (8-23) mg/dL Creatinine (0.7-1.2) mg/dL GFR Calculation Glucose (65-115) mg/dL Calculated Osmolal ity (285-295) mOsm/k g Calcium (8.5-10.5) mg/dL Total Bilirubin (0.15-1.2) mg/dL AST (0-40) U/L ALT (0-41) U/L Alkaline Phosphata se (40-130) IU/L Troponin T Baselin e (0-15) ng/L Troponin T 120 Min [place] tribes (0-15) ng/L Delta Troponin T (0-10) ABS# Total Protein (6.6-8.7) g/dL Albumin (3.5-5.2) g/dL Globulin (1.3-4.6) g/dL TSH (0.27-4.20) uIU/ mL Free T4 (0.82-1.77) ng/d L Ur Random Microalb umin 1 (0-20) ug/dL Ur Random Sodium 119 mmol/L Urine Creatinine 21 L 21 L Cancelled (39-259) mg/dL Microalb/Creat Rat io 48 H (0-20) mg/dL Hepatitis C Antibo dy (Nonreactive) 11/02/20 11/02/20 11/02/20 Range/Units 15:35 15:37 15:37 WBC 14.5 H (4.0-10.0) 10^3/ uL RBC 5.14 (4.1-5.3) 10^6/u L Hgb 15.5 (11.7-16.6) g/dL Hct 48.4 (42.0-52.0) % MCV 94.2 H (80-94) fl MCH 30.2 (28.0-34.0) pg MCHC 32.0 (30.0-36.0) g/dL RDW 14.5 (12.1-15.1) % Plt Count 363 (130-400) 10^3/c mm MPV 9.9 (7.4-10.4) fL Neut % (Auto) 86.1 % Lymph % (Auto) 8.5 % Griggs % (Auto) 4.0 % Eos % (Auto) 0.6 % Baso % (Auto) 0.3 % Neut # (Auto) 12.48 H (1.8-7.7) 10^3/u L Lymph # (Auto) 1.2 (0.8-4.8) 10^3/u L Griggs # (Auto) 0.6 (0.2-0.9) 10^3/u L Eos # (Auto) 0.1 (0.0-0.8) 10^3/u L Baso # (Auto) 0.1 (0.0-0.1) 10^3/u L Nucleated RBC % (a uto) 0 % Nucleated RBCs # 0.0 /100WBC Sodium 134 L (136-145) mmol/L Potassium 7.3 H* (3.5-5.1) mmol/L Chloride 100 (98-107) mmol/L Carbon Dioxide 19 L (22-29) mmol/L Anion Gap 22.3 H (5-19) BUN 31 H (8-23) mg/dL Creatinine 2.2 H (0.7-1.2) mg/dL GFR Calculation Not Reportable Glucose 184 H (65-115) mg/dL Calculated Osmolal ity 289 (285-295) mOsm/k g Calcium 9.4 (8.5-10.5) mg/dL Total Bilirubin 0.5 (0.15-1.2) mg/dL AST 20 (0-40) U/L ALT 12 (0-41) U/L Alkaline Phosphata se 94 (40-130) IU/L Troponin T Baselin e (0-15) ng/L Troponin T 120 Min [place] (0-15) ng/L Delta Troponin T (0-10) ABS# Total Protein 6.7 (6.6-8.7) g/dL Albumin 4.5 (3.5-5.2) g/dL Globulin 2.2 (1.3-4.6) g/dL TSH 8.86 H (0.27-4.20) uIU/ mL Free T4 1.29 (0.82-1.77) ng/d L Ur Random Microalb umin (0-20) ug/dL Ur Random Sodium mmol/L Urine Creatinine (39-259) mg/dL Microalb/Creat Rat io (0-20) mg/dL Hepatitis C Antibo dy (Nonreactive) 11/02/20 11/02/20 11/02/20 Range/Units 15:37 15:37 17:33 WBC (4.0-10.0) 10^3/ uL RBC (4.1-5.3) 10^6/u L Hgb (11.7-16.6) g/dL Hct (42.0-52.0) % MCV (80-94) fl MCH (28.0-34.0) pg MCHC (30.0-36.0) g/dL RDW (12.1-15.1) % Plt Count (130-400) 10^3/c mm MPV (7.4-10.4) fL Neut % (Auto) % Lymph % (Auto) % [place]gs % (Auto) % Eos % (Auto) % Baso % (Auto) % Neut # (Auto) (1.8-7.7) 10^3/u L Lymph # (Auto) (0.8-4.8) 10^3/u L [place]gs # (Auto) (0.2-0.9) 10^3/u L Eos # (Auto) (0.0-0.8) 10^3/u L Baso # (Auto) (0.0-0.1) 10^3/u L Nucleated RBC % (a uto) % Nucleated RBCs # /100WBC Sodium (136-145) mmol/L Potassium (3.5-5.1) mmol/L Chloride (98-107) mmol/L Carbon Dioxide (22-29) mmol/L Anion Gap (5-19) BUN (8-23) mg/dL Creatinine (0.7-1.2) mg/dL GFR Calculation Glucose (65-115) mg/dL Calculated Osmolal ity (285-295) mOsm/k g Calcium (8.5-10.5) mg/dL Total Bilirubin (0.15-1.2) mg/dL AST (0-40) U/L ALT (0-41) U/L Alkaline Phosphata se (40-130) IU/L Troponin T Baselin e 29 H (0-15) ng/L Troponin T 120 Min [place] 35.45 H (0-15) ng/L Delta Troponin T 6.45 (0-10) ABS# Total Protein (6.6-8.7) g/dL Albumin (3.5-5.2) g/dL Globulin (1.3-4.6) g/dL TSH (0.27-4.20) uIU/ mL Free T4 (0.82-1.77) ng/d L Ur Random Microalb umin (0-20) ug/dL Ur Random Sodium mmol/L Urine Creatinine (39-259) mg/dL Microalb/Creat Rat io (0-20) mg/dL Hepatitis C Antibo dy Non-reactive (Nonreactive) EKG Data^: EKG 1: Attestation: I personally reviewed and interpreted this EKG as follows: EKG interpretation date: 11/02/20 EKG interpretation time: 15:51 Prior EKG tracings: available for review Interpretation: Twelve-lead EKG shows a regular sinus rhythm at a rate of 64. CT interval 244, QRS duration 105, QTc 406. Left axis deviation Interpretation: Sinus rhythm. First-degree AV block. Peaked T waves. EKG 2: Attestation: I personally reviewed and interpreted this EKG as follows: EKG interpretation date: 11/02/20 EKG interpretation time: 18:00 Prior EKG tracings: available for review Interpretation: Twelve-lead EKG shows a regular sinus rhythm at a rate of 70. CT interval 260, QRS duration 97, QTc 403. Left axis deviation. Interpretation: Sinus rhythm, improvement in T wave peaking. Critical Care Time Critical Care Time: Critical Care Time: Yes Total Critical Care Time: 45 Attestation: Due to a high probability of clinically significant, possibly life threatening deterioration, the patient required my highest level of attention and preparedness to intervene emergently and I personally spent this critical care time directly and personally managing the patient. This critical care time included obtaining a history; examining the patient; pulse oximetry; ordering and review of laboratory and imaging studies; arranging urgent treatment with development of a management plan; evaluation of patient's response to treatment; frequent reassessment; and, discussions with other providers as applicable. It was exclusive of separately billable procedures. 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
--- NOTE | 2020-11-02 15:38 | XR_ITS ---
WS: [id number] PORTABLE CHEST HISTORY: Allergic reaction COMPARISON: 09/22/2019 Lungs are clear and well expanded. No pleural effusion or pneumothorax. Cardiac size: Normal. Mediastinum/Aorta: Mild atherosclerosis aorta. Moderate degenerative changes at the glenohumeral joints bilaterally. XR/XR chest 1V portable [id number] IMPRESSION: Unremarkable portable chest.
--- NOTE | 2020-11-02 15:39 | ECG_ITS ---
[facility] Test Date: 2020-11-02 Pat Name: Jim Trejo Department: Room: Gender: Male Closing Agent: : 1940 Requested By: Naresh Thomas Order Number: [id number] Arnoldo MD: Toby Frost M.D. Measurements Intervals [place] Rate: 64 P: 51 TN: 244 QRS: -84 QRSD: 105 T: 8 QT: 392 QTc: 406 Interpretive Statements SINUS RHYTHM WITH FIRST DEGREE AV BLOCK INFERIOR MYOCARDIAL INFARCTION , OF INDETERMINATE AGE [40+ ms Q WAVE AND/OR ST/T ABNORMALITY IN II/aVF] Compared to ECG 09/23/2019 09:54:44 No significant changes Electronically Signed On 11-02-2020 19:39:41 CDT by Toby Frost M.D. [id number]
[2020-11-02 15:51] LABS: Basophils # 0.1 10^3/uL (0.0-0.1); Basophils % 0.3 %; Eosinophils # 0.1 10^3/uL (0.0-0.8); Eosinophils % 0.6 %; Hematocrit 48.4 % (42.0-52.0); Hemoglobin 15.5 g/dL (11.7-16.6); Lymphocytes # 1.2 10^3/uL (0.8-4.8); Lymphocytes % 8.5 %; Mean Corpuscular Hemoglobin 30.2 pg (28.0-34.0); Mean Corpuscular Volume 94.2 fl (80-94); Mean Platelet Volume 9.9 fL (7.4-10.4); Monocytes # 0.6 10^3/uL (0.2-0.9); Neutrophils # 12.48 10^3/uL (1.8-7.7); Neutrophils % 86.1 %; Nucleated Red Blood Cells % 0 %; Platelet Count 363 10^3/cmm (130-400); Red Blood Count 5.14 10^6/uL (4.1-5.3); Red Cell Distribution Width 14.5 % (12.1-15.1); White Blood Count 14.5 10^3/uL (4.0-10.0)
--- NOTE | 2020-11-02 15:58 | CT_ITS ---
WS: [id number] CT scan of the head, 11/02/2020 Clinical Data: AMS episodes Comparison: CT head, 09/22/2019. DLP: 1579.[address] scans at [facility] use at least one of these dose optimization techniques: automated e xposure control; mA and/or kV adjustment per patient size (includes targeted exams where dose is matc hed to clinical indication); or iterative reconstruction. Findings: The ventricular system is mildly dilated without shift. No recent infarct or hemorrhage is seen. Ther e are no abnormal intracerebral masses. The cerebellum and brainstem are not remarkable. Bony windows of the skull and skull base show no fractures or erosions. The mastoid air cells, application internship al auditory canals, sella turcica, intraorbital contents, and paranasal sinuses are unremarkable. CT/CT head wo con* [id number] Impression: Moderate cerebral atrophy.
[2020-11-02] MEDS: diphenhydrAMINE 50 mg/mL SDV 1mL 25 MG IVP (16:01)
[2020-11-02] MEDS: famotidine 20 mg/2 mL INJ 40 MG IVP (16:01)
[2020-11-02] MEDS: EPINEPHrine 1 mg/mL INJ 0.3 MG IM (16:01)
[2020-11-02] MEDS: sodium chloride 0.9% 1,000 ML 999 ML IV (16:01)
[2020-11-02 16:21] LABS: Troponin(5th) Baseline 29 ng/L (0-15)
[2020-11-02 16:30] LABS: Alanine Aminotransferase 12 U/L (0-41); Albumin Level 4.5 g/dL (3.5-5.2); Alkaline Phosphatase 94 IU/L (40-130); Anion Gap 22.3 (5-19); Aspartate Amino Transferase 20 U/L (0-40); Blood Urea Nitrogen 31 mg/dL (8-23); Calcium 9.4 mg/dL (8.5-10.5); Carbon Dioxide 19 mmol/L (22-29); Chloride 100 mmol/L (98-107); Globulin 2.2 g/dL (1.3-4.6); Glucose 184 mg/dL (65-115); Osmolality Calculated 289 mOsm/kg (285-295); Sodium 134 mmol/L (136-145); Thyroid Stimulating Hormone 8.86 uIU/mL (0.27-4.20); Total Bilirubin 0.5 mg/dL (0.15-1.2); Total Protein 6.7 g/dL (6.6-8.7)
[2020-11-02 16:33] LABS: Potassium 7.3 mmol/L (3.5-5.1)
--- NOTE | 2020-11-02 16:58 | PC.PHAR ---
PT UNABLE TO VERIFY MEDICATIONS-PTS VERIFIED WHAT MEDS SHE KNEW-NOTES ARE MADE IN THE PHARMACY COMMENTS-SOME MEDICATIONS HAVENT BEEN FILLED SINCE JUNE 2020 90D/S PTS STATES THE PT HAD A BUILD UP OF SOME OF THE MEDICATIONS FROM WHEN THEY GOT IN THE MAIL
[2020-11-02 17:03] LABS: Free T4 Free Thyroxine 1.29 ng/dL (0.82-1.77)
[2020-11-02] MEDS: calcium gluconate 0.1 gm/mL 10% SDV 10mL 1 GM IVP ×2 (17:32→23:53)
[2020-11-02] MEDS: insulin regular-human 100 units/1 mL 10 UNIT IVP (17:32)
[2020-11-02] MEDS: dextrose 50% syringe 50 mL IVP ×2 (17:32→23:52)
--- NOTE | 2020-11-02 17:39 | ECG_ITS ---
[facility] Test Date: 2020-11-02 Pat Name: Vinh Trejo Department: Room: Gender: Male Rn Imaging: : 1940 Requested By: Naresh Thomas Order Number: [id number] Arnoldo MD: Toby Frost M.D. Measurements Intervals [place] Rate: 70 P: 54 WV: 260 QRS: -66 QRSD: 97 T: 9 QT: 374 QTc: 403 Interpretive Statements SINUS RHYTHM WITH FIRST DEGREE AV BLOCK INFERIOR MYOCARDIAL INFARCTION , OF INDETERMINATE AGE [40+ ms Q WAVE AND/OR ST/T ABNORMALITY IN II/aVF] Compared to ECG 11/02/2020 15:50:46 No significant changes Electronically Signed On 11-02-2020 19:45:02 CDT by Toby Frost M.D. [id number]
[2020-11-02 18:10] LABS: ABG PCO2 42.7 mmHg (35-45); ABG PH Result 7.29 (7.35-7.45); Arterial Blood Gas Hematocrit 40.5 % (42-52); Base Excess ABG -6.2 mmol/L (-2.0-2.0); Blood Gas Allen Test Pos; Blood Gas Operator Identificat BD; Blood Gas Sample Site Brachial, right; Blood Gas Sample Type Arterial; HCO3 ABG 20.3 mmol/L (22-26); PO2 ABG 72.3 mmHg (80.0-100.0)
[2020-11-02 18:15] LABS: Troponin 5 2HR 35.45 ng/L (0-15); Troponin 5 2HR Delta 6.45 ABS# (0-10)
[2020-11-02 18:34] LABS: Add Urine Microscopic? YES; Bacteria Urine 2+ /hpf; Bilirubin Urine Neg (Negative); Blood Urine Neg (Negative); Glucose Urine UA Norm (Normal); Ketones Urine 1+ (Negative); Leukocyte Esterase Urine 2+ (Negative); Mucus Urine 2+ /hpf; Nitrate Urine Negative (Negative); Protein Urine 1+ (Negative); RBC Urine 0-4 /hpf (0-2); Specific Gravity, Urine 1.015 (1.005-1.030); Squamous Epithelial Cell Urine 0-4 /hpf (0-5); Urine Appearance SL Hazy (CLEAR); Urine Color Yellow (Yellow); Urobilinogen Urine Neg (Negative); pH Urine 5 (5-7)
[2020-11-02 18:35] LABS: Add Urine Culture? Yes
[2020-11-02 19:18] LABS: Blood Urea Nitrogen 40 mg/dL (8-23); Calcium 8.5 mg/dL (8.5-10.5); Carbon Dioxide 21 mmol/L (22-29); Chloride 107 mmol/L (98-107); Glucose 75 mg/dL (65-115); Osmolality Calculated 292 mOsm/kg (285-295); Sodium 137 mmol/L (136-145)
[2020-11-02] MEDS: sodium chloride 0.9% 500 ML 999 ML IV (20:11)
--- NOTE | 2020-11-02 21:40 | ECG_ITS ---
[facility] Test Date: 2020-11-02 Pat Name: Vinh Trejo Department: Room: ICU03 Gender: Male Educational Fundraising Director: : 1940 Requested By: Nakita Cook Order Number: [id number] Arnoldo MD: Linh Wade M.D. Measurements Intervals [place] Rate: 71 P: 67 MO: 256 QRS: -70 QRSD: 110 T: 37 QT: 379 QTc: 414 Interpretive Statements SINUS RHYTHM WITH FIRST DEGREE AV BLOCK LEFT AXIS DEVIATION [QRS AXIS < -30] Compared to ECG 11/02/2020 17:56:44 Left-axis deviation now present Myocardial infarct finding no longer present Electronically Signed On 11-04-2020 9:09:25 CDT by Linh Wade M.D. [id number]
--- NOTE | 2020-11-02 21:44 | PM.HP ---
Providers/Chief Complaint Admitting Physician: Nakita Cook MD Primary Care Provider: Talya Valenzuela APN Chief Complaint: ALLERGIC REACTION, DIFF WALKING, SWELLING ALL OVER History of Present Illness Vinh Trejo is a 80 year old male with past medical history of chronic kidney disease, hypertension, complains of an allergic reaction and swelling all over. 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 Found to have body rash and felt lightheaded. 3 hours after working with bees developed rash. Received Benadryl at home. Brought to the ER. Did not have tongue swelling or difficulty breathing. In the ED patient received Benadryl, Pepcid as well as epinephrine. He also received 125 mg of methylprednisolone. He reports falling yesterday but does not recall this. Subsequently he was found to have abnormal labs. Most notable to have a potassium of 7.3. Also noted to have a creatinine of 2.3. In November 2019 creatinine was 1.5. A UA was checked. As well as an ABG. TSH was also noted to be abnormal at 8.86. Urinalysis was also abnormal with leukoesterase and yeast. EKG was done. Patient received calcium gluconate as well as insulin and dextrose. Potassium levels did improve. Review of Systems General: Reports: 10 or more systems reviewed and unremarkable except in HPI and below Const: Denies: fever(s), chills or body aches Eyes: Denies: change in vision or blurry vision ENMT: Denies: throat pain Card: Denies: chest pain or palpitations Resp: Denies: dyspnea or productive cough GI: Denies: abdominal pain or nausea : Denies: flank pain or difficulty urinating Musc: Denies: neck pain or back pain Skin/Breast: Reports: rash, pruritus and erythema Neuro: Reports: dizziness; Denies: headache(s) Psych: Denies: anxiety or depression Endo: Denies: polyuria or polydipsia Robert/Lymph: Denies: easy bruising All/Imm: Reports: urticaria; Denies: throat swelling or tongue swelling Medications/Allergies Home Medications Medication Instructions Recorded Confirmed Last Taken Type albuterol sulfate 2.5 mg INHALATION Q4H PRN 06/18/19 11/02/20 Unknown History albuterol sulfate 90 mcg/actuation 2 puff INHALATION Q6H PRN 06/18/19 11/02/20 Unknown History aerosol inhaler allopurinol 300 mg tablet 300 mg PO DAILY 06/18/19 11/02/20 09/21/19 History atorvastatin 10 mg tablet 10 mg PO DAILY 06/18/19 11/02/20 09/21/19 History bupropion HCl 150 mg 24 hr tablet, 150 mg PO QAM 06/18/19 11/02/20 09/21/19 History extended release fluticasone 250 mcg-salmeterol 50 1 inh INHALATION BID 06/18/19 11/02/20 09/21/19 History mcg/dose blistr powdr for inhalation gabapentin 600 mg tablet 600 mg PO BID 06/18/19 11/02/20 09/21/19 History lisinopril 20 mg tablet 20 mg PO DAILY 06/18/19 11/02/20 09/21/19 History pantoprazole 40 mg tablet,delayed 40 mg PO DAILY 06/18/19 11/02/20 09/21/19 History release venlafaxine 150 mg 150 mg PO DAILY 06/18/19 11/02/20 09/21/19 History capsule,extended release 24 hr zolpidem 10 mg tablet 10 mg PO DAILY PRN tab 06/18/19 11/02/20 09/21/19 History naproxen 500 mg PO BID PRN 09/22/19 11/02/20 Unknown History tramadol 50 mg PO Q4H PRN 09/22/19 11/02/20 09/21/19 History Vitamin B-12 1 tab PO DAILY 11/02/20 11/02/20 Unknown History Vitamin D3 1 cap PO DAILY 11/02/20 11/02/20 Unknown History apple cider vinegar 1 tab PO DAILY 11/02/20 11/02/20 Unknown History aspirin [Aspirin Low Dose] 81 mg PO DAILY 11/02/20 11/02/20 Unknown History fluticasone propionate [Flonase] 1 spray INTRANASAL DAILY 11/02/20 11/02/20 Unknown History garlic 1 cap PO DAILY 11/02/20 11/02/20 Unknown History hydrochlorothiazide 12.5 - 25 mg PO DAILY PRN 11/02/20 11/02/20 Unknown History pramipexole 1.5 mg PO BEDTIME 11/02/20 11/02/20 Unknown History tadalafil [Cialis] 20 mg PO DAILY PRN 11/02/20 11/02/20 Unknown History testosterone cypionate 200 mg IM Q14D 11/02/20 11/02/20 Unknown History [Depo-Testosterone] trazodone 150 mg PO BEDTIME PRN 11/02/20 11/02/20 Unknown History vitamin E 1 cap PO DAILY 11/02/20 11/02/20 Unknown History Allergies Allergy/AdvReac Type Severity Reaction Status Date / Time Penicillins Allergy Severe ALGY-Rash Verified 11/02/20 15:20 Sulfa (Sulfonamide Allergy Severe ALGY-Rash Verified 11/02/20 15:20 Antibiotics) Iodinated Contrast Media Allergy Unknown Verified 11/02/20 16:41 turmeric Allergy Unknown Verified 11/02/20 16:41 ivory soap Allergy ALGY-Rash Uncoded 11/02/20 15:20 PFSH Acute PFSH: Medical History (Updated 11/02/20 @ 21:50 by Nakita Cook MD) Arthritis CKD (chronic kidney disease) COPD (chronic obstructive pulmonary disease) Depression with anxiety GERD (gastroesophageal reflux disease) Gout HTN (hypertension) Hyperlipidemia Restless leg syndrome Surgical History H/O hand surgery H/O knee surgery H/O shoulder surgery History of back surgery Family History Mother Osteoporosis Other CAD (coronary artery disease) Social History Smoking and tobacco status: former smoker Quit status (tobacco): has quit using tobacco Year quit tobacco: 1983 - 1PPD x 30 Years Alcohol intake: never Lives independently: Yes Household members: spouse Marital status: Current occupational status: employed 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 History of recent travel: No Current gender identity: Male Vitals/I&O/Wt Last Vital Signs Temp 97.5 F L 11/02/20 15:20 Pulse 69 11/02/20 20:00 Resp 16 11/02/20 20:00 BP 103/51 11/02/20 20:00 Pulse Ox 95 11/02/20 20:00 Weight last 48 hrs Weight 170 lb Data : 11/02/20 15:37 11/02/20 18:44 A&P Assessment and plan (1) Acute kidney injury: Status: Acute (2) Hyperkalemia: Status: Acute (3) Allergic reaction: Status: Acute (4) UTI (urinary tract infection): Status: Acute (5) COPD (chronic obstructive pulmonary disease): Status: Acute Qualifiers: COPD type: unspecified COPD Qualified Code(s): J44.9 - Chronic obstructive pulmonary disease, unspecified (6) Abnormal EKG: Status: Acute (7) HTN (hypertension): Status: Acute Qualifiers: Hypertension type: essential hypertension Qualified Code(s): I10 - Essential (primary) hypertension Additional A&P Information #anaphylaxis --?bee exposure --rash all over. denies sob, tongue or lip swelling --received benadryl, solumedrol, pecid, and epi in the ER --has had resolution of hives --continue Prednisone 20mg po qday, Pepcid 20mg --Benadryl and EPI PRN #Acute on CKD --Screat elevated, --denies heavy NSAID use, or poor PO intake --abnormal UA --check Urine Na, Creat --check Mg, Phos, CK --check Renal US --start NS @100 cc/hr --Nephrology consultion --monitor I/O, daily weights #hyperkalemia --?2/2 JOSE --lasix, hctz, lisinoprl listed on home med list, he is not able to recall --hold antihypertensives. add PRN hydralyzine for now --takes MVT daily --received calcium gluconate, Insulin and dextrose in ED --consider Lokalma #HLD --on statin --check CPK #UTI --followup cultures --start Rocephin --?fungal add diflucan #COPD --sats stable on RA --PRN albuterol #HTN --recently started on lasix --lisinopril , lasix, hctz held --PRN hydralyzine DVT: SCDs Code: full Attestations Medical Necessity Statement*: Vinh E Trejo's hospital stay will require greater than 2 midnights for JOSE, anaphylaxis Coding Level of Care Code Acute Armament Aircraft Mechanic for g Fwd Diagnoses Acute kidney injury N17.9 Hyperkalemia E87.5 Allergic reaction T78.40XA UTI (urinary tract infection) N39.0 COPD (chronic obstructive pulmonary disease) J44.9 COPD type: unspecified COPD Abnormal EKG R94.31 HTN (hypertension) I10 Hypertension type: essential hypertension
--- NOTE | 2020-11-02 22:19 | P.CONIM_ITS ---
Providers/Reason For Consult Consulting Physician/Specialty*: goldie alejandro md/ telenephrology Reason for Consult*: JOSE and hyperkalemia Attending Physician: Nakita Cook MD Primary Care Provider: Talya Valenzuela APN History of Present Illness History of Present Illness Vinh Trejo is a 80 year old male with past medical history of JOSE in September 2019- when he presented w/ syncope and cr manjeet to 3.9 and improved w/ ivf to 1.3 mg/dl. He had a recent normal stress test in 2019. He has htn. He recently c/o edema and weight gain and started a diuretic a week ago. Today the pt presented complaining of an allergic reaction and swelling all over. 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 Four hours later he states he developed a rash and felt lightheaded. Received Benadryl at home. Brought to the ER. Did not have tongue swelling or difficulty breathing. In the ED patient received Benadryl, Pepcid as well as epinephrine. He also received 125 mg of methylprednisolone. Subsequently he was found to have JOSE w/ cr 2.2 mg/dl and k of 7.3 Most notable to have a potassium of 7.3. Urinalysis was also abnormal with leukoesterase and yeast. EKG was done. Patient received calcium gluconate as well as insulin and dextrose. Potassium levels did improve to 6- However, i am not sure if he received the medications before or after reeat potassium. Review of Systems General: Reports: 10 or more systems reviewed and unremarkable except in HPI and below Narrative: rash, recent edema and weight gain of 8-10 lbs. + lightheaded. denies urinary symptoms. he is not sure of his medications. Meds/Allergies Home Medications and Allergies Home Medications Medication Instructions Recorded Confirmed Last Taken Type albuterol sulfate 2.5 mg INHALATION Q4H PRN 06/18/19 11/02/20 Unknown History albuterol sulfate 90 mcg/actuation 2 puff INHALATION Q6H PRN 06/18/19 11/02/20 Unknown History aerosol inhaler allopurinol 300 mg tablet 300 mg PO DAILY 06/18/19 11/02/20 09/21/19 History atorvastatin 10 mg tablet 10 mg PO DAILY 06/18/19 11/02/20 09/21/19 History bupropion HCl 150 mg 24 hr tablet, 150 mg PO QAM 06/18/19 11/02/20 09/21/19 History extended release fluticasone 250 mcg-salmeterol 50 1 inh INHALATION BID 06/18/19 11/02/20 09/21/19 History mcg/dose blistr powdr for inhalation gabapentin 600 mg tablet 600 mg PO BID 06/18/19 11/02/20 09/21/19 History lisinopril 20 mg tablet 20 mg PO DAILY 06/18/19 11/02/20 09/21/19 History pantoprazole 40 mg tablet,delayed 40 mg PO DAILY 06/18/19 11/02/20 09/21/19 History release venlafaxine 150 mg 150 mg PO DAILY 06/18/19 11/02/20 09/21/19 History capsule,extended release 24 hr zolpidem 10 mg tablet 10 mg PO DAILY PRN tab 06/18/19 11/02/20 09/21/19 History naproxen 500 mg PO BID PRN 09/22/19 11/02/20 Unknown History tramadol 50 mg PO Q4H PRN 09/22/19 11/02/20 09/21/19 History Vitamin B-12 1 tab PO DAILY 11/02/20 11/02/20 Unknown History Vitamin D3 1 cap PO DAILY 11/02/20 11/02/20 Unknown History apple cider vinegar 1 tab PO DAILY 11/02/20 11/02/20 Unknown History aspirin [Aspirin Low Dose] 81 mg PO DAILY 11/02/20 11/02/20 Unknown History fluticasone propionate [Flonase] 1 spray INTRANASAL DAILY 11/02/20 11/02/20 Unknown History garlic 1 cap PO DAILY 11/02/20 11/02/20 Unknown History hydrochlorothiazide 12.5 - 25 mg PO DAILY PRN 11/02/20 11/02/20 Unknown History pramipexole 1.5 mg PO BEDTIME 11/02/20 11/02/20 Unknown History tadalafil [Cialis] 20 mg PO DAILY PRN 11/02/20 11/02/20 Unknown History testosterone cypionate 200 mg IM Q14D 11/02/20 11/02/20 Unknown History [Depo-Testosterone] trazodone 150 mg PO BEDTIME PRN 11/02/20 11/02/20 Unknown History vitamin E 1 cap PO DAILY 11/02/20 11/02/20 Unknown History Allergies Allergy/AdvReac Type Severity Reaction Status Date / Time Penicillins Allergy Severe ALGY-Rash Verified 11/02/20 15:20 Sulfa (Sulfonamide Allergy Severe ALGY-Rash Verified 11/02/20 15:20 Antibiotics) Iodinated Contrast Media Allergy Unknown Verified 11/02/20 16:41 turmeric Allergy Unknown Verified 11/02/20 16:41 ivory soap Allergy ALGY-Rash Uncoded 11/02/20 15:20 PFSH Acute PFSH: Medical History (Updated 11/02/20 @ 21:50 by Nakita Cook MD) Arthritis CKD (chronic kidney disease) COPD (chronic obstructive pulmonary disease) Depression with anxiety GERD (gastroesophageal reflux disease) Gout HTN (hypertension) Hyperlipidemia Restless leg syndrome Surgical History H/O hand surgery H/O knee surgery H/O shoulder surgery History of back surgery Family History Mother Osteoporosis Other CAD (coronary artery disease) Social History Smoking and tobacco status: former smoker Quit status (tobacco): has quit using tobacco Year quit tobacco: 1983 - PD x 30 Years Alcohol intake: never Lives independently: Yes Household members: spouse Marital status: Current occupational status: employed 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 Pt presented w/ hypotension, BP 77/54. he was recently started om hctz in addition to his say-i. Pt had a rash and was lightheaded. 1. OJSE- likely prerenal azotemia vs ATN- risk factor of hctz and say-i, may also be on NSAID's- he is not sure- stop all of these meds -check renal us -ua w/ 2+LE, 5-10 wbc 2+ bact, 1+ yeast- likey a uti -check urine lytes, pr, and cr -give ivf -noote high hgb- likely hemoconcentrated -monitor where cr plateaus- may have CKD- not certain 2. hyperkalemia- monitor on ivf -rx medically -low k diet -repeat labs and monitor -no say-i 3. hypotension- improving 4. acid- base status- met acidosis and mild resp acidosis 5. tsh 8.86- per medicine 6. UTI - abx per medicine seen and examined w/ CASTER OPERATOR- telehealth visit informed consent for telehealth visit obtained time spent 50 minutes Consult Attestations Medical Necessity Statement: hyperkalemia, JOSE Time Spent in Patient Care: Greater than 35 minutes Coding Level of Care Code Acute Bankruptcy Processor for Jumana Forbes
[2020-11-02 22:23] LABS: Creatine Phosphokinase 36 U/L (39-308); Magnesium 1.9 mg/dL (1.7-2.3); Phosphorus 2.2 mg/dL (2.5-4.5)
--- NOTE | 2020-11-02 22:27 | PC.NURSE ---
patient admitted to ICU bed 3 until CSU bed is available. Spoke with telenephrologist regarding admission. assessment done and relayed to kerrick kleaner operator. discussed patients complaint of weight gain of 8lbs and recently starting a water pill for increased swelling of lower extremities. received orders for repeat labs at midnight and to call with results. will give IVF for rescusitation.
[2020-11-02] MEDS: sodium chloride 0.9% 1,000 ML 75 ML IV (22:30)
[2020-11-02 23:03] LABS: Alanine Aminotransferase 10 U/L (0-41); Albumin Level 3.7 g/dL (3.5-5.2); Alkaline Phosphatase 71 IU/L (40-130); Anion Gap 16.7 (5-19); Aspartate Amino Transferase 17 U/L (0-40); Blood Urea Nitrogen 36 mg/dL (8-23); Calcium 8.5 mg/dL (8.5-10.5); Carbon Dioxide 19 mmol/L (22-29); Chloride 104 mmol/L (98-107); Globulin 1.8 g/dL (1.3-4.6); Glucose 123 mg/dL (65-115); Osmolality Calculated 286 mOsm/kg (285-295); Sodium 133 mmol/L (136-145); Total Bilirubin 0.4 mg/dL (0.15-1.2); Total Protein 5.5 g/dL (6.6-8.7)
[2020-11-02 23:04] LABS: Troponin(5th) Baseline 33 ng/L (0-15)
[2020-11-02 23:05] LABS: Hepatitis C Virus Antibody Non-Reactive (Nonreactive)
[2020-11-02 23:07] LABS: Potassium 6.7 mmol/L (3.5-5.1)
--- NOTE | 2020-11-02 23:39 | PC.NURSE ---
Spoke with recruiting associate regarding recent labs. Orders received
[2020-11-02] MEDS: FUROsemide 10 mg/mL SDV 2mL 20 MG IVP (23:52)
[2020-11-02] MEDS: insulin regular-human 10 UNIT in SYRINGE 1 EACH IVP (23:53)
[2020-11-02] MEDS: sodium polystyrene sulfonate 15 gm/60 mL Btl 30 GM PO (23:54)
[2020-11-03] VITALS (13 sets, daily range): BP systolic 105–133; BP diastolic 48–79; PULSE 66–84; RESP 12–21; TEMP 36.6–36.8; O2SAT 94–98
[2020-11-03 01:14] LABS: Troponin 5 2HR 35.39 ng/L (0-15); Troponin 5 2HR Delta 2.39 ABS# (0-10)
[2020-11-03 01:54] LABS: Urine Creatinine 21 mg/dL (39-259); Urine Random Sodium 119 mmol/L
[2020-11-03 02:10] LABS: Creatinine Urine, Random 21 mg/dL (39-259); Microalbum Creatinine Ratio Ur 48 mg/dL (0-20); Microalbumin Random Urine 1 ug/dL (0-20)
--- NOTE | 2020-11-03 02:17 | PC.NURSE ---
patient transferred to CSU at this time. remains on transport monitor throughout. trip uneventful.
--- NOTE | 2020-11-03 04:29 | ECG_ITS ---
[facility] Test Date: 2020-11-03 Pat Name: Vinh Trejo Department: Room: 111 Gender: Male Music Publicist: : 1940 Requested By: Nakita Cook Order Number: [id number] Arnoldo MD: Linh Wade M.D. Measurements Intervals [place] Rate: 69 P: 70 AZ: 270 QRS: -63 QRSD: 102 T: 52 QT: 371 QTc: 399 Interpretive Statements SINUS RHYTHM WITH FIRST DEGREE AV BLOCK LEFT AXIS DEVIATION [QRS AXIS < -30] Compared to ECG 11/02/2020 23:01:02 No significant changes Electronically Signed On 11-04-2020 9:09:13 CDT by Linh Wade M.D. [id number]
[2020-11-03 05:18] LABS: Basophils % 0.1 %; Hemoglobin 11.7 g/dL (11.7-16.6); Lymphocytes # 0.6 10^3/uL (0.8-4.8); Lymphocytes % 4.5 %; Mean Corpuscular HGB Conc 32.5 g/dL (30.0-36.0); Mean Corpuscular Hemoglobin 30.8 pg (28.0-34.0); Mean Corpuscular Volume 94.7 fl (80-94); Monocytes # 0.4 10^3/uL (0.2-0.9); Monocytes % 3.2 %; Neutrophils # 11.36 10^3/uL (1.8-7.7); Neutrophils % 91.9 %; Nucleated Red Blood Cells % 0 %; Platelet Count 281 10^3/cmm (130-400); Red Cell Distribution Width 14.4 % (12.1-15.1); White Blood Count 12.4 10^3/uL (4.0-10.0)
[2020-11-03 05:49] LABS: Albumin Level 3.8 g/dL (3.5-5.2); Anion Gap 15.5 (5-19); Blood Urea Nitrogen 38 mg/dL (8-23); Carbon Dioxide 23 mmol/L (22-29); Chloride 102 mmol/L (98-107); Chol HDL Ratio 2.86 mg/dL (1.0-5.00); Cholesterol 103 mg/dL (0-200); Glucose 167 mg/dL (65-115); HDL Cholesterol 36 mg/dL (60-100); LDL Cholesterol Calculated 54 mg/dL (50-129); Magnesium 1.7 mg/dL (1.7-2.3); Phosphorus 2.8 mg/dL (2.5-4.5); Potassium 5.5 mmol/L (3.5-5.1); Sodium 135 mmol/L (136-145); Triglycerides 65 mg/dL (0-150)
[2020-11-03 06:01] LABS: Calcium 8.8 mg/dL (8.5-10.5)
[2020-11-03 06:05] LABS: Parathyroid Hormone 59.9 pg/mL (15-65)
[2020-11-03] MEDS: levoFLOXacin 250 mg Tablet PO (06:24)
--- NOTE | 2020-11-03 07:06 | P.PN_ITS ---
Subjective Subjective: Interval history: feels better. no n/v/f/c/greene/d/sob Medications: Reviewed: Yes Medication Review Details: Current Medications Albuterol Sulfate (Albuterol 2.5 Mg/0.5 Ml Neb) 2.5 mg INHALATION Q4H.RESPIRATORY PRN PRN Reason: SHORTNESS OF BREATH Diphenhydramine HCl (Diphenhydramine 50 Mg Capsule) 50 mg PO Q4H PRN PRN Reason: ALLERGIC REACTION Epinephrine HCl (Epinephrine 1 Mg/Ml Inj) 0.3 mg IM PRN PRN PRN Reason: ANAPHYLAXIS Famotidine (Famotidine 20 Mg Tablet) 20 mg PO BID FATUMA Fluconazole (Fluconazole 100 Mg Tablet) 200 mg PO ONCE [facility] Sodium Bicarbonate 150 meq/ (Dextrose) 1,000 mls @ 125 mls/hr IV .Q8H [facility] Last Admin: 11/02/20 23:52 Dose: 125 mls/hr Documented by: Levofloxacin (Levofloxacin 250 Mg Tablet) 250 mg PO DAILY@0600 [facility]; Protocol Last Admin: 11/03/20 06:24 Dose: 250 mg Documented by: Prednisone (Prednisone 20 Mg Tablet) 20 mg PO DAILY [facility] Vitals/I&O/Wt Last Vital Signs Temp 98.3 F 11/03/20 04:00 Pulse 69 11/03/20 04:00 Resp 12 11/03/20 04:00 BP 105/48 11/03/20 04:00 Pulse Ox 94 11/03/20 04:00 11/02/20 11/03/20 11/03/20 22:59 06:59 14:59 Intake Total 127.5 / 127.5 Output Total 400 / 400 Balance -272.5 / -272.5 Weight last 48 hrs Weight 80.24 kg Weight 80.824 kg Weight 77.111 kg Physical Exam Narrative: EXAM NARRATIVE: lying comfortably in bed, NARD vs noted heent- nc/at ,eomi, anicteric neck supple lungs -clear b/l heart- reg no rub abd soft, nt, nd, +BS ext trace b/l edema neuro- a,a, o x 3 pulses + b/l skin- red rash Data : 11/03/20 04:55 11/03/20 04:55 A&P Additional A&P Information 80 yr old man w/ allergic reaction. Pt presented w/ hypotension, BP 77/54. he was recently started om hctz in addition to his say-i. Pt had a rash and was lightheaded. 1. JOSE- likely prerenal azotemia vs ATN- risk factor of hctz and say-i, may also be on NSAID's- he is not sure. -cr stable off of these meds -check renal us -ua w/ 2+LE, 5-10 wbc 2+ bact, 1+ yeast- likey a uti -urine na 119- c/w ATN ur microalb/ cr = 48 -mild elevation- not nephrotic range proteinuria -give ivf -note high hgb- now 11.7. he was likely hemoconcentrated -monitor where cr plateaus- may have CKD- not certain 2. hyperkalemia- monitor on bicarb ivf -low k diet -repeat labs bid and monitor -no say-i 3. hypotension- improving 4 met acidosis improving 5. tsh 8.86- per medicine 6. UTI - abx per medicine 7. monitor glucose 8. vit d levels pending. pth 59 seen and examined w/ RN- telehealth visit informed consent for telehealth visit obtained time spent 30 minutes Attestations Medical Necessity Statement*: jose, hyperkalemia Time Spent in Patient Care: 16 - 35 minutes Coding Level of Care Code Acute Correctional Supervisor Lieutenant for Jumana Forbes
--- NOTE | 2020-11-03 08:00 | USCV_ITS ---
Vinh Trejo Age: 80 Gender: M : 1940 Exam Date: 11/03/2020 13:07 Ordering Phys: Nakita Cook MD Technologist: CHRISTOPHE Exam Location: [facility] [place] Indication: JOSE, PREV ON DIUERTIC BP: 121 / 66 HR: 70 Rhythm: Sinus Technical Quality: Adequate MEASUREMENTS (Male / Female) Normal Values 2D ECHO LV Diastolic Diameter PLAX 4.2 cm 4.2 - 5.9 / 3.9 - 5.3 cm LV Systolic Diameter PLAX 2.7 cm IVS Diastolic Thickness 1.1 cm 0.6 - 1.0 / 0.6 - 0.9 cm IVS Systolic Thickness 1.2 cm LVPW Diastolic Thickness 1.1 cm 0.6 - 1.0 / 0.6 - 0.9 cm LVPW Systolic Thickness 1.3 cm LVOT Diameter 2.0 cm LV Ejection Fraction 2D Teich 64.5 % LV Ejection Fraction MOD 2C 50.1 % LV Ejection Fraction 2C AL 57.7 % LA Diameter 3.2 cm LA Width 3.5 cm LA Height 4.1 cm RA Width 4.3 cm RA Height 4.5 cm Aorta at Sinotubular Diameter 2.9 cm DOPPLER AV Peak Velocity 239.0 cm/s LVOT Peak Velocity 111.0 cm/s AV Area Cont Eq vti 1.3 cm squared AV Area Cont Eq pk 1.4 cm squared MV Peak Velocity 297.0 cm/s MV Area PHT 3.2 cm squared Mitral E to A Ratio 0.6 MV E' Velocity 33.0 cm/s Mitral E to MV E' Ratio 3.5 Mitral E to LV E' Lateral Ratio 3.8 Mitral E to LV E' Septal Ratio 3.3 TR Peak Velocity 211.6 cm/s TR Peak Gradient 17.9 mmHg TR Mean Velocity 133.6 cm/s TR Mean Gradient 7.6 mmHg TR Velocity Time Integral 45.1 cm Right Atrial Pressure 3.0 mmHg Pulmonary Artery Systolic Pressu 20.9 mmHg PV Peak Velocity 104.0 cm/s RV Acceleration Time 0.1 s RV Ejection Time 0.3 s RV AcT/ET 0.3 FINDINGS Left Ventricle Normal left ventricular cavity size. Normal left ventricular systolic function. No regional wall motion abnormalities. Left ventricular ejection fraction is estimated at 65 %. Grade I/IV diastolic dysfunction (abnormal relaxation filling pattern), normal to mildly elevated filling pressures. Right Ventricle The right ventricle is normal in size and function. Right Atrium The right atrium is normal in size. Left Atrium The left atrium is normal in size. Mitral Valve Structurally normal mitral valve without significant stenosis or prolapse. There is no mitral regurgitation. Aortic Valve Severe aortic valve calcification. Moderate aortic valve stenosis, mean gradient 12 mmHg, STELLA 1.3 cm squared.no aortic valve regurgitation. Tricuspid Valve Structurally normal tricuspid valve without significant stenosis or regurgitation. Pulmonary artery systolic pressure is normal. Pulmonic Valve Structurally normal pulmonic valve without significant stenosis. There is no pulmonic regurgitation. Pericardium Normal pericardium without effusion. Aorta Normal ascending aorta dimension. CONCLUSIONS 1-Normal left ventricular cavity size. Normal left ventricular systolic function. No regional wall motion abnormalities. Left ventricular ejection fraction is estimated at 65 %. Grade I/IV diastolic dysfunction (abnormal relaxation filling pattern), normal to mildly elevated filling pressures. 2-Severe aortic valve calcification. Moderate aortic valve stenosis, mean gradient 12 mmHg, STELLA 1.3 cm squared.no aortic valve regurgitation. 3-Structurally normal mitral valve without significant stenosis or prolapse. There is no mitral regurgitation. 4-There is no pericardial effusion. 5-Pulmonary artery systolic pressure is within normal limits. 6-Right atrial pressure is around 5 mm of mercury. 7-No significant change since the prior echocardiogram study of 09/23/2019 Akilah Herbert MD (Electronically Signed) Final Date: 03 November 2020 18:48 S
--- NOTE | 2020-11-03 08:00 | US_ITS ---
WS: [id number] RENAL ULTRASOUND HISTORY: JOSE COMPARISON: None available. TECHNIQUE: 2-D and color Doppler imaging of the kidney submitted. Right kidney: 10.6 cm x 5.1 cm x 6.1 cm. Normal size and echogenicity. Cortical cyst from the superior kidney measures 9 x 8.9 mm. No solid ma ss. Left kidney: 9.9 cm x 3.8 cm x 4.8 cm. Normal size and echogenicity. Cysts from the superior pole measures 1.4 x 1.4 x 1.2 cm. Aorta: Normal. Urinary Bladder: Well-distended urinary bladder. Prostate gland is enlarged measuring 4.0 x 2.9 x 3.1 cm. US/US renal BI* [id number] IMPRESSION: 1. No hydronephrosis or atrophy. 2. Small bilateral cortical cysts. 3. Prostate gland enlargement.
[2020-11-03] MEDS: famotidine 20 mg Tablet PO ×2 (10:01→20:11)
[2020-11-03] MEDS: predniSONE 20 mg Tablet PO (10:02)
--- NOTE | 2020-11-03 10:28 | PC.CHAP ---
Pastoral Care Encounter/Spiritual Assessment Type of Contact [] Declined bench molder visit [] Patient/Family/Request visit [] Outpatient visit [] Follow-up visit [] Physician referral [] Code/Alert [x] Routine visit [] Staff referral [] Actively dying [] Patient sleeping [] Family support [] [] Out of room [] Palliative care [] [x] Receiving care in room [] Pre-surgical visit [] Trauma [] Long length of stay [] ICU visit [] Other: Relational/Emotional Strength [x] Patient feels connected with others/family/visitors/staff [] Distress [] Loneliness/isolation [] Abandonment Spirituality of Patient [x] Person of Katja [] Attends Temple of their Katja [x] Believes in Prayer [] Reads Bible or Christian materials [] There are Spiritual issues to be addressed Cylinder Devalver Interventions [x] Prayer [x] Active listening [x] Non-anxious presence [x] Spiritual/emotional support [] Crisis/trauma care [x] Spiritual counseling [] Bereavement support [] Provided bereavement packet [] Provided Bible/devotional materials [] Provided toy/stuffed animal, coloring book to patient or family member [] Provided Communion [] Anointing/[place] [] Salvation [x] Completed spiritual assessment [] Other: Impact on Illness or Injury [] Angry [] Fearful [x] Anxious [] Often cries [] Exhaustion [x] Unable to work [] Unable to attend islam [] Unable to walk/stand [] Unable to read [] Unable to drive [] Unable to eat/drink [] Unable to sleep [] Unable to be with family [] Patient intubated [] Other: Summary Swelling unable to control her balance,is feeling better waiting on tests has a good attitude and wants to home Time spent with patient 10 mins
[2020-11-03 15:02] LABS: Alanine Aminotransferase 11 U/L (0-41); Albumin Level 3.8 g/dL (3.5-5.2); Alkaline Phosphatase 65 IU/L (40-130); Blood Urea Nitrogen 43 mg/dL (8-23); Calcium 8.6 mg/dL (8.5-10.5); Carbon Dioxide 27 mmol/L (22-29); Chloride 100 mmol/L (98-107); Glucose 123 mg/dL (65-115); Osmolality Calculated 294 mOsm/kg (285-295); Sodium 136 mmol/L (136-145); Total Bilirubin 0.3 mg/dL (0.15-1.2); Total Protein 5.8 g/dL (6.6-8.7)
[2020-11-03 15:10] LABS: Aspartate Amino Transferase 25 U/L (0-40)
--- NOTE | 2020-11-03 18:05 | PM.PN ---
Subjective Subjective: Interval history: No new complaints overnight Medications: Reviewed: Yes Medication Review Details: Current Medications Albuterol Sulfate (Albuterol 2.5 Mg/0.5 Ml Neb) 2.5 mg INHALATION Q4H.RESPIRATORY PRN PRN Reason: SHORTNESS OF BREATH Diphenhydramine HCl (Diphenhydramine 50 Mg Capsule) 50 mg PO Q4H PRN PRN Reason: ALLERGIC REACTION Epinephrine HCl (Epinephrine 1 Mg/Ml Inj) 0.3 mg IM PRN PRN PRN Reason: ANAPHYLAXIS Famotidine (Famotidine 20 Mg Tablet) 20 mg PO BID [facility] Fluconazole (Fluconazole 100 Mg Tablet) 200 mg PO ONCE [facility] Sodium Bicarbonate 150 meq/ (Dextrose) 1,000 mls @ 125 mls/hr IV .Q8H [facility] Last Admin: 11/02/20 23:52 Dose: 125 mls/hr Documented by: Levofloxacin (Levofloxacin 250 Mg Tablet) 250 mg PO DAILY@0600 [facility]; Protocol Last Admin: 11/03/20 06:24 Dose: 250 mg Documented by: Prednisone (Prednisone 20 Mg Tablet) 20 mg PO DAILY [facility] Vitals/I&O/Wt Last Vital Signs Temp 97.8 F 11/03/20 08:00 Pulse 70 11/03/20 11:55 Resp 13 11/03/20 11:57 BP 121/66 11/03/20 11:55 Pulse Ox 96 11/03/20 11:55 11/03/20 11/03/20 11/03/20 06:59 14:59 22:59 Intake Total 127.5 / 127.5 1360 / 1360 Output Total 400 / 400 Balance -272.5 / -272.5 1360 / 1360 Weight last 48 hrs Weight 80.24 kg Weight 80.824 kg Weight 77.111 kg Physical Exam Narrative: EXAM NARRATIVE: General-alert awake and oriented x3 HEENT-grossly unremarkable CVS -regular rate rhythm Chest- nonlabored respiration Abdomen- nondistended Extremities-no edema Data : 11/03/20 04:55 11/03/20 14:08 Micro: Microbiology 11/02/20 18:01 Urine Culture - Preliminary Urine,Clean Catch Gram Negative Rods A&P Assessment and plan (1) Acute kidney injury: Status: Acute (2) Hyperkalemia: Status: Acute (3) Allergic reaction: Status: Acute (4) UTI (urinary tract infection): Status: Acute (5) COPD (chronic obstructive pulmonary disease): Status: Acute Qualifiers: COPD type: unspecified COPD Qualified Code(s): J44.9 - Chronic obstructive pulmonary disease, unspecified (6) Abnormal EKG: Status: Acute (7) HTN (hypertension): Status: Acute Qualifiers: Hypertension type: essential hypertension Qualified Code(s): I10 - Essential (primary) hypertension Additional A&P Information #Anaphylaxis Resolved --?bee exposure --rash all over. denies sob, tongue or lip swelling --received benadryl, solumedrol, pecid, and epi in the ER --has had resolution of hives --continue Prednisone 20mg po qday, Pepcid 20mg --Benadryl and EPI PRN #Acute on CKD --Screat elevated, 2.0 Today --denies heavy NSAID use, or poor PO intake --abnormal UA --Continue Bicarb gtt. --Nephrology consultation --monitor I/O, daily weights --Repeat BMP in am #hyperkalemia - Resolved. --?2/2 JOSE --lasix, hctz, lisinoprl listed on home med list, he is not able to recall --hold antihypertensives. add PRN hydralyzine for now --takes MVT daily --received calcium gluconate, Insulin and dextrose in ED --consider Lokalma -- K 5.0 today #HLD --on statin #UTI --followup cultures --Continue Rocephin #COPD --sats stable on RA --PRN albuterol #HTN --recently started on lasix --lisinopril , lasix, hctz held --PRN hydralyzine DVT: SCDs Code: full Attestations Medical Necessity Statement*: Will require further hospitalization for management of renal failure Time Spent in Patient Care: Greater than 35 minutes (>than 50% of time spent in counselling and/or direct pt care on unit). Coding Level of Care Code Acute Stock Cutter for [facility] Fwd Diagnoses Acute kidney injury N17.9 Hyperkalemia E87.5 Allergic reaction T78.40XA UTI (urinary tract infection) N39.0 COPD (chronic obstructive pulmonary disease) J44.9 COPD type: unspecified COPD Abnormal EKG R94.31 HTN (hypertension) I10 Hypertension type: essential hypertension
[2020-11-04] VITALS: BP 136/62; PULSE 94; RESP 18; TEMP 36.6; O2SAT 94
[2020-11-04 04:00] VITALS: BP 136/62; PULSE 94; RESP 18; TEMP 36.6; O2SAT 94
[2020-11-04 05:16] LABS: Magnesium 1.6 mg/dL (1.7-2.3); Phosphorus 2.8 mg/dL (2.5-4.5)
[2020-11-04 06:00] VITALS: BMI 28.5
[2020-11-04 08:26] VITALS: PULSE 79; RESP 20; O2SAT 96
[2020-11-04] MEDS: levoFLOXacin 250 mg Tablet PO (08:39)
[2020-11-04] MEDS: predniSONE 20 mg Tablet PO (08:39)
[2020-11-04] MEDS: famotidine 20 mg Tablet PO (08:39)
[2020-11-04 11:43] LABS: Alanine Aminotransferase 10 U/L (0-41); Albumin Level 3.9 g/dL (3.5-5.2); Alkaline Phosphatase 67 IU/L (40-130); Anion Gap 11.8 (5-19); Aspartate Amino Transferase 22 U/L (0-40); Blood Urea Nitrogen 31 mg/dL (8-23); Calcium 8.6 mg/dL (8.5-10.5); Carbon Dioxide 31 mmol/L (22-29); Chloride 100 mmol/L (98-107); Globulin 2.1 g/dL (1.3-4.6); Glucose 102 mg/dL (65-115); Osmolality Calculated 295 mOsm/kg (285-295); Potassium 3.8 mmol/L (3.5-5.1); Sodium 139 mmol/L (136-145); Total Bilirubin 0.3 mg/dL (0.15-1.2)
--- NOTE | 2020-11-04 12:11 | PM.PN ---
Subjective Subjective: Interval history: He feels much better today with no complaints. Eating and drinking well. Passing his urine normally without obstructive symptoms. No extremity edema or other hypervolemic symptoms and his swelling is better Medications: Reviewed: Yes Medication Review Details: Current Medications Albuterol Sulfate (Albuterol 2.5 Mg/0.5 Ml Neb) 2.5 mg INHALATION Q4H.RESPIRATORY PRN PRN Reason: SHORTNESS OF BREATH Diphenhydramine HCl (Diphenhydramine 50 Mg Capsule) 50 mg PO Q4H PRN PRN Reason: ALLERGIC REACTION Epinephrine HCl (Epinephrine 1 Mg/Ml Inj) 0.3 mg IM PRN PRN PRN Reason: ANAPHYLAXIS Famotidine (Famotidine 20 Mg Tablet) 20 mg PO BID FATUMA Fluconazole (Fluconazole 100 Mg Tablet) 200 mg PO ONCE [facility] Sodium Bicarbonate 150 meq/ (Dextrose) 1,000 mls @ 125 mls/hr IV .Q8H [facility] Last Admin: 11/02/20 23:52 Dose: 125 mls/hr Documented by: Levofloxacin (Levofloxacin 250 Mg Tablet) 250 mg PO DAILY@0600 [facility]; Protocol Last Admin: 11/03/20 06:24 Dose: 250 mg Documented by: Prednisone (Prednisone 20 Mg Tablet) 20 mg PO DAILY [facility] Vitals/I&O/Wt Last Vital Signs Temp 97.8 F 11/04/20 04:00 Pulse 79 11/04/20 08:26 Resp 20 H 11/04/20 08:26 BP 136/62 11/04/20 04:00 Pulse Ox 96 11/04/20 08:26 11/03/20 11/04/20 11/04/20 22:59 06:59 14:59 Intake Total 1300 / 2660 1400 / 4060 329.167 / 329.167 Output Total 200 / 200 550 / 750 Balance 1100 / 2460 850 / 3310 329.167 / 329.167 Weight last 48 hrs Weight 80.24 kg Weight 80.24 kg Weight 80.824 kg Weight 77.111 kg Physical Exam Narrative: EXAM NARRATIVE: Constitutional: Awake, comfortable HEENT: Wet mucosa, no jvp, non icteric Lungs: Bilaterally clear without discernible wheeze, rales in all lung zones CVS: S1 S2, no murmurs Abdo: Soft, BS ok Ext 4: Minimal edema, peripheral perfusion with no cyanosis Neurological: Grossly non-focal Data : 11/03/20 04:55 11/04/20 10:26 Micro: Microbiology 11/02/20 18:01 Urine Culture - Final Urine,Clean Catch Escherichia coli A&P Additional A&P Information 80 yr old man w/ allergic reaction. Pt presented w/ hypotension, BP 77/54. he was recently started om hctz in addition to his say-i. Pt had a rash and was lightheaded. 1. JOSE- likely prerenal azotemia vs ATN- risk factor of hctz and say-i, may also be on NSAID's Creatinine now coming down nicely 2. hyperkalemia- improving 3. hypotension- improving 4 met acidosis improving; now alkalosis, DC bicarb gtt 5. tsh 8.86- per medicine 6. UTI - abx per medicine 7. monitor glucose 8. vit d levels pending. pth 59 seen and examined w/ RN- telehealth visit ok for DC from my own perspective time spent 30 minutes Attestations Medical Necessity Statement*: eval for JOSE Coding Level of Care Code Acute Veterinary Technician Assistant for Jumana Forbes
[2020-11-04 13:15] VITALS: BP 151/78; PULSE 67; RESP 18
[2020-11-04 13:29] VITALS: BP 151/78
--- NOTE | 2020-11-04 16:03 | PM.DCS ---
Discharge Providers Date of Admission: 11/02/20 17:43 Date of Discharge: November 04, 2020 Attending Provider at Admission: Nakita Cook MD Attending Provider at Discharge: Jennyfer Zaidi Primary Care Provider: Talya Valenzuela APN Diagnoses at Discharge Discharge Diagnosis (1) Acute kidney injury: Status: Resolved (2) Hyperkalemia: Status: Resolved (3) Allergic reaction: Status: Resolved (4) UTI (urinary tract infection): Status: Acute (5) COPD (chronic obstructive pulmonary disease): Status: Resolved Qualifiers: COPD type: unspecified COPD Qualified Code(s): J44.9 - Chronic obstructive pulmonary disease, unspecified (6) Abnormal EKG: Status: Resolved (7) HTN (hypertension): Status: Acute Qualifiers: Hypertension type: essential hypertension Qualified Code(s): I10 - Essential (primary) hypertension Reason for Visit Reason for Visit: ALLERGIC REACTION, DIFF WALKING, SWELLING ALL OVER Hospital Course Hospital Course 80 year old male with past medical history of chronic kidney disease, hypertension, complains of an allergic reaction and swelling all over. 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 Found to have body rash and felt lightheaded. 3 hours after working with bees developed rash. Received Benadryl at home. Brought to the ER. Did not have tongue swelling or difficulty breathing. In the ED patient received Benadryl, Pepcid as well as epinephrine. He also received 125 mg of methylprednisolone. He reports falling yesterday but does not recall this. Subsequently he was found to have abnormal labs. Most notable to have a potassium of 7.3. Also noted to have a creatinine of 2.3. In November 2019 creatinine was 1.5. A UA was checked. As well as an ABG. TSH was also noted to be abnormal at 8.86. Urinalysis was also abnormal with leukoesterase and yeast.EKG was done. Patient received calcium gluconate as well as insulin and dextrose. Potassium levels returned to normal. Nephrology was consulted. Patient was started on Bicarb drip. Creatinine improved to 1.6. Nephrology cleared patient for discharge. Noted to have a UTi. Tolerated levaquin. Prescribed at discahrge. Patient had resolution of allergic reaction. He was prescribed epi-pen if any recurrence. To follow up outpatient with pcp and consider allergic testing with allergy/immunology referral. Sumeet-inhibitor was held at discharge. Physical Exam Narrative: EXAM NARRATIVE: General-alert awake and oriented x3 HEENT-grossly unremarkable CVS -regular rate rhythm Chest- nonlabored respiration Abdomen- nondistended Extremities-no edema Discharge Data Data Completed and Pending: Completed Studies During Hospitalization Category Date Time Status CT head wo con* 7 0450 Urgent Cat Scan 11/02/20 15:58 Completed XR chest 1V anusha ble [id number] Urgent Exams 11/02/20 15:38 Completed CV. echo complete * [id number] Routine Ultrasound 11/03/20 08:00 Completed US renal BI* [id number] Routine Ultrasound 11/03/20 08:00 Completed Pending at discharge Category Date Time Status Arterial Blood Ga s W/O Coox Stat Lab 11/02/20 18:00 Results Vitamin D 1,25 Di hydroxy Routine Lab 11/02/20 22:33 Received Vitals: Last Vital Signs Temp 97.8 F 11/04/20 04:00 Pulse 67 11/04/20 13:15 Resp 18 11/04/20 13:15 BP 151/78 11/04/20 13:29 Pulse Ox 96 11/04/20 08:26 Discharge Plan Discharge Patient Disposition: Home Condition: Stable Prescriptions: New levofloxacin 250 mg tablet 250 mg PO DAILY 3 Days Qty: 3 RF: 0 EpiPen 0.3 mg/0.3 mL auto-injector 0.3 mg IM Q10M PRN (Reason: anaphylaxis) Qty: 1 RF: 0 Continued fluticasone propion-salmeterol [Advair Diskus] 250-50 mcg/dose blister with device 1 inh INHALATION BID RF: 0 albuterol sulfate [ProAir HFA] 90 mcg/actuation HFA aerosol inhaler 2 puff INHALATION Q6H PRN (Reason: Shortness Of Breath) RF: 0 zolpidem [Ambien] 10 mg tablet 10 mg PO DAILY PRN (Reason: Sleep) RF: 0 allopurinol 300 mg tablet 300 mg PO DAILY RF: 0 gabapentin 600 mg tablet 600 mg PO BID RF: 0 venlafaxine 150 mg capsule,extended release 24hr 150 mg PO DAILY RF: 0 bupropion HCl 150 mg tablet extended release 24 hr 150 mg PO QAM RF: 0 atorvastatin 10 mg tablet 10 mg PO DAILY RF: 0 pantoprazole 40 mg tablet,delayed release (DR/EC) 40 mg PO DAILY RF: 0 albuterol sulfate 2.5 mg /3 mL (0.083 %) solution for nebulization 2.5 mg INHALATION Q4H PRN (Reason: Shortness Of Breath) RF: 0 tramadol 50 mg Tablet 50 mg PO Q4H PRN (Reason: Pain) RF: 0 Aspirin Low Dose 81 mg tablet,delayed release (DR/EC) 81 mg PO DAILY RF: 0 trazodone 150 mg Tablet 150 mg PO BEDTIME PRN (Reason: Sleep) RF: 0 Depo-Testosterone 200 mg/mL Oil 200 mg IM Q14D RF: 0 fluticasone propionate 50 mcg/actuation [place],Suspension 1 spray INTRANASAL DAILY RF: 0 pramipexole 1.5 mg Tablet 1.5 mg PO BEDTIME RF: 0 Cialis 20 mg Tablet 20 mg PO DAILY PRN (Reason: Erectile Dysfunction) RF: 0 Vitamin B-12 1 tab PO DAILY RF: 0 Vitamin D3 1 cap PO DAILY RF: 0 vitamin E 1 cap PO DAILY RF: 0 Discontinued lisinopril 20 mg tablet 20 mg PO DAILY RF: 0 naproxen 500 mg Tablet 500 mg PO BID PRN (Reason: Pain) RF: 0 garlic Capsule 1 cap PO DAILY RF: 0 hydrochlorothiazide 25 mg Tablet 12.5 - 25 mg PO DAILY PRN (Reason: Edema) RF: 0 apple cider vinegar 1 tab PO DAILY RF: 0 Discharge Orders: Discharge Order (Routine); Ordered 11/04/20 Ordered By: Jennyfer Zaidi Other Ambulatory Orders: Basic Metabolic Panel (Routine) Timeframe: 1 Week Facility: [facility] - Location: Lab - Main Lab Ordered By: Jennyfer Zaidi Referrals: Talya Valenzuela APN [Primary Care Provider] - 11/11/20 9:15 am (You have a hospital followup with Talya Valenzuela APN at [facility] on November 11 at 9:15am. You will have a BMP bloodwork done there at this appointment rather than having to come to the hospital. Thank you) Discharge Diet: Usual diet Discharge Activity: Increase activity as tolerated Patient Instructions: Levofloxacin (By mouth), Epinephrine (Injection), Opioid Safety Discharge Attestations Time Spent in Discharge Care*: greater than 30 min Specific Discharge Activities: educating patient, educating and/or supporting family/caregiver, discussing with pcp/other providers, discussing with registered nurse hh case manager/social workers/dc planners, documenting/other paperwork and evaluating patient/reviewing data Status at Discharge: Cognitive status at discharge: cognitively intact, Behavioral status at discharge: cooperative, Functional status at discharge: independent ambulation Overall status at discharge: patient is back to baseline Quality Metrics Clinical Quality Measures During this hospital stay, did patient experience: None Coding Level of Care Code Acute g DC note Diagnoses Acute kidney injury N17.9 Hyperkalemia E87.5 Allergic reaction T78.40XA UTI (urinary tract infection) N39.0 COPD (chronic obstructive pulmonary disease) J44.9 COPD type: unspecified COPD Abnormal EKG R94.31 HTN (hypertension) I10 Hypertension type: essential hypertension
--- NOTE | 2020-11-08 14:39 | PC.SOCIAL ---
discharge follow up call made. spoke with pts . patient has follow up appointment scheduled with Talya Valenzuela, he will have lab work done when he sees her. patient reports patient discontinued the medications listed on discharge per the doctor. no concerns voiced.
[2020-11-09 01:07] LABS: Vit D 1,25 (Oh)2, Total 31 pg/mL (18-72); Vit D2 1,25 (Oh)2 <8 pg/mL; Vit D3 1,25 (Oh)2 31 pg/mL
== END 2020-11-04 13:29 | disposition home or self-care (01) ==
LOC: ER 17:30 → CSU 11-03 08:10 → ICU 11-09 14:50
PROVIDERS: Internal Medicine Nephrology; Admitting Provider Internal Medicine; Emergency Provider Emergency Medicine; PCP Nurse Practitioner Family; Visit Provider Hospitalist
DX: T78.40XA Allergy, unspecified, initial encounter (principal); W57.XXXA Bitten or stung by nonvenomous insect and other nonvenomous arthropods, initial encounter; N17.9 Acute kidney failure, unspecified; E87.5 Hyperkalemia; N39.0 Urinary tract infection, site not specified; J44.9 Chronic obstructive pulmonary disease, unspecified; R94.31 Abnormal electrocardiogram [ECG] [EKG]; I10 Essential (primary) hypertension; M19.90 Unspecified osteoarthritis, unspecified site; E78.5 Hyperlipidemia, unspecified; K21.9 Gastro-esophageal reflux disease without esophagitis; Z87.891 Personal history of nicotine dependence; I95.9 Hypotension, unspecified
CPT/HCPCS: 36415; 36600; 51798; 70450; 71045; 76770; 80048; 80053; 80061; 80069; 81001; 82044; 82310; 82550; 82570; 82652; 82803; 83735; 83970; 84100; 84300; 84439; 84443; 84484; 85025; 86803; 87077; 87086; 87186; 93005; 93306; 94640; 96372; 96374; 96375; 99285; G0378; J0171; J0610; J1200; J1815; J1940; J2930; J3490; J7030; J7040; J7512; J7611; Q3014